=== PATIENT | female | born 1935 | race African-American/Black ===

== ENCOUNTER 2017-04-20 12:34 | Outpatient (CLI) | payer MEDICARE, OTHER ==
[~2017-04-20 12:34] MED LIST: ABUTEROL; ACETAMINOPHEN-1 EAC1 ORAL; ADVAIR 250-501 EACH INH; ALBUTER; ALBUTEROL2.5 MG/3 M HHN; ASPIRIN81 MG PO; AUGMENTIN 875-1 EAC1 ORAL; AZELASTINE137 MCG/0. NS; AZITHROMYCIN250 MG ORAL; AZITHROMYCIN250 MG PO; FLUTICASONE PROP1 GM MISC; LOSARTAN POTAS100 MG PO; MONTELUKAST SOD10 MG ORAL; MUCINEX600 MG PO; NORCO 5-325 TA1 EAC1 ORAL; OMEPRAZOLE20 M2 ORAL; PHENERGAN/CODE120 ML PO; PREDNISOLONE ACE5 ML OP; PREDNISONE20 MG ORAL; PREDNISONE20 MG PO; PROMETH-CODEIN 65 ML PO; PROMETHAZI6.25 MG/1 ORAL; RANITIDINE HCL150 M1 PO; REFRESH OPTIVE15 ML OP; ROBAXIN-750750 MG PO; SYMBICORT2 PUFF1 *; VENTOLIN HFA18 GM INH; ZITHROMAX250 MG ORAL; ZOCOR40 MG PO
--- NOTE | 2017-04-20 15:02 | Diagnostic Imaging Report ---
Indication: COUGH Technique: Two views of the chest Comparison: 04/26/2016 Findings: The lungs and pleural spaces are clear. Heart size is normal. Aorta is tortuous and calcified. There are degenerative changes of thoracic spine. There are cholecystectomy clips. Cervical spine fusion hardware is again demonstrated Impression: No acute process
== END 2017-04-20 14:34 | disposition home or self-care (01) ==
LOC: RAD 12:34
DX: R05 Cough (principal); Z98.1 Arthrodesis status; Z90.49 Acquired absence of other specified parts of digestive tract; J45.909 Unspecified asthma, uncomplicated
CPT/HCPCS: 71020

== ENCOUNTER 2017-06-27 13:35 | Outpatient (CLI) | payer MEDICARE, OTHER ==
--- NOTE | 2017-06-27 16:57 | Diagnostic Imaging Report ---
Indication: Shortness of breath Technique: 2 views of the chest Comparison: 04/20/2017 Findings: Lungs and pleural spaces are clear. The heart size is normal. The aorta is tortuous and ectatic. Right paratracheal prominence is stable from the prior multiple earlier exams, consistent with ectatic vasculature. Cervical spine fusion hardware is again demonstrated. There are degenerative changes of the midthoracic spine. There are cholecystectomy clips again demonstrated. Impression: No acute process. Findings as noted
== END 2017-06-27 15:35 | disposition home or self-care (01) ==
LOC: RAD 13:35
DX: R05 Cough (principal); J44.9 Chronic obstructive pulmonary disease, unspecified; Z98.1 Arthrodesis status; Z90.49 Acquired absence of other specified parts of digestive tract
CPT/HCPCS: 71046

== ENCOUNTER 2019-03-20 14:35 | Inpatient (IN) | payer MEDICARE, OTHER ==
[~2019-03-20] VITALS: Ht 162.6 cm; Wt 72.6 kg
--- NOTE | 2019-03-20 14:50 | NUR ---
ED Nurse Note: PT WALKED IN WITH HER DAUGHTER DUE TO RESPIRATORY DISTRESS AND PRODUCTIVE/PAINFUL COUGHING X 2 WEEKS. DENIES FEVER AT HOME. AAO X4, AMBULATES WITH ASSIST. NOTED ACCESSORY MUSCLES USED WHEN COUGHING. SOB AT REST. WHEEZING NOTED WHEN AUSCULTATED LUNGS.
[2019-03-20 15:00] VITALS: BP 148/77
[2019-03-20] MEDS ORDERED: Ipratropium 0.02% Inh Soln 2.5ml UD HHN ONE (15:00)
--- NOTE | 2019-03-20 15:04 | Emergency Room Report ---
History of Present Illness General Chief Complaint: Dyspnea/Respdistress Source: Patient, Family Member Present Illness HPI Patient presents with wheezing, cough and increasing dyspnea on exertion over the last few days. She has a nebulizer at home and says it is not working anymore. In the past she has been on prednisone. She is not taking this now. Is not her worst attack. Denies fevers or chills. She denies chest pain. She does report that her upper back has some discomfort from the cough. This pain is mainly positional. She rates this pain 8/10. She feels it is more related to osteoarthritis. She denies edema or calf pain. She denies vomiting but sometimes feels the urge when she is coughing up phlegm. There is no hemoptysis. The phlegm is mainly clear but somewhat thick. She is never smoked but says that she has problems with asthma. She states that she has a history of arthritis. She is scheduled to see a gear technician tomorrow. The joints that are sore are mainly in her fingers, hands and knees. No sore throat, palpitations, nausea, diarrhea, dysuria, abdominal pain, rashes , depression, anxiety, visual changes, dizziness, headache. 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 Reviewed Nursing Documentation: PMH: Agreed; PSxH: Agreed Nursing Documentation-PMH Past Medical History: No History, Except For Hx Cardiac Problems: Yes Hx Hypertension: Yes Hx Pacemaker: No Hx Asthma: Yes Hx COPD: No Hx Diabetes: No Hx Cancer: No Hx Gastrointestinal Problems: No Hx Dialysis: No Hx Neurological Problems: No Hx Cerebrovascular Accident: No Hx Seizures: No Review of Systems All Other Systems: negative except mentioned in HPI Physical Exam Vital Signs Date Time Temp Pulse Resp B/P (MAP) Pulse Ox O2 Delivery O2 Flow Rate FiO2 03/20/19 14:40 98.1 100 27 159/85 (109) 98 Room Air Sp02 EP Interpretation: reviewed, normal General Appearance: well appearing, no apparent distress, GCS 15 Head: normocephalic Eyes: bilateral eye normal inspection, bilateral eye PERRL, bilateral eye EOMI ENT: moist mucus membranes Neck: supple Respiratory: no respiratory distress - Breathless with ambulation, wheezing, expiration Cardiovascular #1: regular rate, rhythm, no edema Cardiovascular #2: 2+ radial (R) Gastrointestinal: normal inspection, normal bowel sounds, non tender, no mass, non-distended Genitourinary: no CVA tenderness Musculoskeletal: gait/station normal, normal range of motion, no calf tenderness, tender - Upper back Neurologic: alert, oriented x3, grossly normal Psychiatric: mood/affect normal Skin: no rash, normal inspection, warm/dry Medical Decision Making Diagnostic Impression: Primary Impression: COPD exacerbation ER Course CMP, patient presents with increasing dyspnea wheezing and cough. Differential includes status asthmaticus, COPD exacerbation, bronchitis, acute myocardial infarction, pneumonia amongst others. The patient will be evaluated with EKG, chest x-ray and labs. The patient will be receiving IV hydration, albuterol Atrovent and Solu-Medrol. The patient is placed on a telemetry monitor. EKG without injury. Chest x-ray COPD without infiltrate. Labs with normal white count however she has high percentage of eosinophils. Coags and urinalysis unremarkable. Examined by Dr. Em in the emergency department. There is no evidence of pneumonia at this time. With a normal white count its questionable whether antibiotics are indicated. The fact that the patient has eosinophilia suggest that she will respond to steroids. Return of dyspnea and coughing. Repeat tx. Patient still with wheezing. Patient admitted to medical floor for continued treatment and reevaluation. Laboratory Tests Test 03/20/19 14:58 03/20/19 15:40 03/20/19 16:00 Sodium Level 141 MMOL/L (136-145) Potassium Level 4.2 MMOL/L (3.5-5.1) Chloride Level 106 MMOL/L (98-107) Carbon Dioxide Level 29 MMOL/L (21-32) Anion Gap 6 mmol/L (5-15) Blood Urea Nitrogen 13 mg/dL (7-18) Creatinine 1.0 MG/DL (0.55-1.30) Estimate Glomerular Filtration Rate mL/min (>60) Glucose Level 88 MG/DL (74-106) Calcium Level 9.6 MG/DL (8.5-10.1) Magnesium Level 2.0 MG/DL (1.8-2.4) Total Bilirubin 0.4 MG/DL (0.2-1.0) Aspartate Amino Transferase (AST) 31 U/L (15-37) Alanine Aminotransferase (ALT) 28 U/L (12-78) Alkaline Phosphatase 63 U/L (46-116) Total Creatine Kinase 277 U/L (26-308) Pro-B-Type Natriuretic Peptide 104 pg/mL (0-125) Total Protein 7.4 G/DL (6.4-8.2) Albumin 3.6 G/DL (3.4-5.0) Globulin 3.8 g/dL Albumin/Globulin Ratio 0.9 (1.0-2.7) L White Blood Count 8.7 K/UL (4.8-10.8) Red Blood Count 4.91 M/UL (4.20-5.40) Hemoglobin 13.1 G/DL (12.0-16.0) Hematocrit 40.4 % (37.0-47.0) Mean Corpuscular Volume 82 FL (80-99) Mean Corpuscular Hemoglobin 26.7 PG (27.0-31.0) L Mean Corpuscular Hemoglobin Concent 32.4 G/DL (32.0-36.0) Red Cell Distribution Width 12.2 % (11.6-14.8) Platelet Count 196 K/UL (150-450) Mean Platelet Volume 6.3 FL (6.5-10.1) L Neutrophils (%) (Auto) 45.1 % (45.0-75.0) Lymphocytes (%) (Auto) 26.5 % (20.0-45.0) Monocytes (%) (Auto) 7.9 % (1.0-10.0) Eosinophils (%) (Auto) 19.0 % (0.0-3.0) H Basophils (%) (Auto) 1.6 % (0.0-2.0) Prothrombin Time 10.5 SEC (9.30-11.50) Prothrombin Time INR 1.0 (0.9-1.1) PTT 25 SEC (23-33) Lactic Acid Level 1.20 mmol/L (0.4-2.0) Troponin I 0.012 ng/mL (0.000-0.056) Urine Color Yellow Urine Appearance Clear Urine pH 5 (4.5-8.0) Urine Specific Henry 1.015 (1.005-1.035) Urine Protein Negative (NEGATIVE) Urine Glucose (UA) Negative (NEGATIVE) Urine Ketones Negative (NEGATIVE) Urine Blood Negative (NEGATIVE) Urine Nitrite Negative (NEGATIVE) Urine Bilirubin Negative (NEGATIVE) Urine Urobilinogen 1 MG/DL (0.0-1.0) H Urine Leukocyte Esterase 2+ (NEGATIVE) H Urine RBC 0 /HPF (0 - 2) Urine WBC 2-4 /HPF (0 - 2) Urine Squamous Epithelial Cells Occasional /LPF Urine Bacteria None /HPF (NONE) Microbiology Date/Time Source Procedure Growth Status 03/20/19 15:40 Nasal Nares - Final Complete 03/20/19 15:40 Nasal Nares - Final Complete EKG Diagnostic Results Rate: normal Rhythm: NSR ST Segments: no acute changes Rhythm Strip Diag. Results EP Interpretation: yes Rhythm: NSR, no PVC's, other - PACs Chest X-Ray Diagnostic Results Chest X-Ray Diagnostic Results : Chest X-Ray Ordered: Yes # of Views/Limited/Complete: 1 View Indication: Shortness of Breath EP Interpretation: Yes Interpretation: no consolidation, no effusion, no pneumothorax, other - COPD Impression: Other Electronically Signed by: Electronically signed by Phillip Farrar MD Last Vital Signs Date Time Temp Pulse Resp B/P (MAP) Pulse Ox O2 Delivery O2 Flow Rate FiO2 03/21/19 00:10 Nasal Cannula 2.0 28 03/21/19 00:09 110 20 97 110 20 97 03/20/19 20:00 97.7 139/66 (90) Status: improved Disposition: ADMITTED INPATIENT Condition: Serious Phillip Farrar MD Mar 20, 2019 15:04
[2019-03-20] MEDS ORDERED: Solu-MEDROL 125mg Inj IVP ONE (15:15)
[2019-03-20] MEDS: Albuterol ud Inhalation HHN SCH ×3 (15:16→15:52)
[2019-03-20] MEDS: Sodium Chloride 550 ML IV SCH ×2 (15:24→18:40)
--- NOTE | 2019-03-20 15:29 | NUR ---
ED Nurse Note: RT AT THE BED SIDE FOR BREATHING TREATMENT. BLOOD COLLECTED THEN SENT.
--- NOTE | 2019-03-20 15:29 | NUR ---
ED Nurse Note: FLU SWAB SENT.
--- NOTE | 2019-03-20 15:44 | Diagnostic Imaging Report ---
Indication: Pain, possible foreign body Technique: 3 views of the right knee Comparison: None Findings: No suprapatellar effusion. No acute fractures. No dislocations. There is narrowing of the medial joint compartments. There is a superior pole patellar spur Impression: Mild degenerative changes No acute bony trauma This agrees with the preliminary interpretation provided overnight by [facility] teleradiology service.
[2019-03-20 15:56] LABS: BASOPHILS % (AUTO) 1.6 % (0.0-2.0); HEMATOCRIT 40.4 % (37.0-47.0); HEMOGLOBIN 13.1 G/DL (12.0-16.0); LYMPHOCYTES % (AUTO) 26.5 % (20.0-45.0); MEAN CORPUSCULAR VOLUME 82 FL (80-99); MONOCYTES % (AUTO) 7.9 % (1.0-10.0); NEUTROPHILS % (AUTO) 45.1 % (45.0-75.0); PLATELET COUNT 196 K/UL (150-450); RED BLOOD COUNT 4.91 M/UL (4.20-5.40); RED CELL DISTRIBUTION WIDTH 12.2 % (11.6-14.8); WHITE BLOOD COUNT 8.7 K/UL (4.8-10.8)
[2019-03-20 16:07] LABS: ANION GAP 6 mmol/L (5-15); BLOOD UREA NITROGEN 13 mg/dL (7-18); CALCIUM 9.6 MG/DL (8.5-10.1); CARBON DIOXIDE 29 MMOL/L (21-32); CHLORIDE 106 MMOL/L (98-107); POTASSIUM 4.2 MMOL/L (3.5-5.1); SODIUM 141 MMOL/L (136-145)
[2019-03-20 16:18] LABS: ALANINE AMINOTRANSFERASE 28 U/L (12-78); ALBUMIN 3.6 G/DL (3.4-5.0); ALBUMIN/GLOBULIN RATIO 0.9 (1.0-2.7); ALKALINE PHOSPHATASE 63 U/L (46-116); ASPARTATE AMINO TRANSFERASE 31 U/L (15-37); BILIRUBIN,TOTAL 0.4 MG/DL (0.2-1.0); CREATINE KINASE 277 U/L (26-308)
--- NOTE | 2019-03-20 16:53 | NUR ---
ED Nurse Note: PT STATES ''SHE FEELS BETTER'. SPEAKS MORE AT THIS TIME. DAUGHTER AT THE BED SIDE.
[2019-03-20 17:05] VITALS: BP 141/57
[2019-03-20 17:16] LABS: APPEARANCE,URINE CLEAR; BILIRUBIN, URINE NEGATIVE (NEGATIVE); GLUCOSE, URINE (UA) NEGATIVE (NEGATIVE); KETONES,URINE NEGATIVE (NEGATIVE); LEUKOCYTE ESTERASE ,URINE 2+ (NEGATIVE); NITRITE,URINE NEGATIVE (NEGATIVE); PH,URINE 5 (4.5-8.0); PROTEIN,URINE NEGATIVE (NEGATIVE); UROBILINOGEN,URINE 1 MG/DL (0.0-1.0)
[2019-03-20 17:19] LABS: COLOR,URINE YELLOW
[2019-03-20] MEDS ORDERED: Albuterol ud Inhalation HHN ONE (17:30)
[2019-03-20] MEDS ORDERED: guaiFENesin w/Codeine 5ml Liq ud ORAL PRN (17:30)
--- NOTE | 2019-03-20 17:30 | NUR ---
ED Nurse Note: NOTED PT COUGHING OUT WHITE PHLEGM AFTER FIRST BREATHING TREATMENT.
--- NOTE | 2019-03-20 17:31 | NUR ---
ED Nurse Note: RT CALLED FOR ANOTHER BREATHING TREATMENT.
--- NOTE | 2019-03-20 18:15 | NUR ---
ED Nurse Note: Patient does not recall all her medications at this time.
[2019-03-20] MEDS ORDERED: AMOXICILLIN500 MG ORAL (18:27)
--- NOTE | 2019-03-20 18:28 | NUR ---
ED Nurse Note: PT TRANSPORTED TO TELEMETRY UNIT VIA GURNEY WITH ALL BELONGINGS SENT WITH RN AND LOCK TECHNICIAN. PT STABLE.
[2019-03-20] MEDS ORDERED: Milk of Magnesia 30ml Ud ORAL PRN (18:30)
--- NOTE | 2019-03-20 18:36 | NUR ---
NURSE NOTES: Report from PIETRO Long in ED at 1810. Pt brought to 2E 214-1 via gurney. Pt is awake, talkative, productive cough, RT called for breathing treatment, pt changed into yellow gown, yellow socks and tele monitor applied and working, Dr. Em has been contacted for orders already. Bed in lowest position, call light within reach
[2019-03-20] MEDS: Albuterol/Ipratropium 3ml neb HHN PRN (19:44)
--- NOTE | 2019-03-20 19:57 | NUR ---
HAND-OFF: Report given to PIETRO Conklin. Endorse to do Med Recon review, clarify orders with Dr. Em, obtain sputum from pt to send to lab.
--- NOTE | 2019-03-20 19:59 | NUR ---
NURSE NOTES: Received pt from PIETRO Mariano. Pt awake, alert, and talkative. Bed in lowest position. Call light within reach. Will continue to monitor.
[2019-03-20 20:00] VITALS: BP 139/66
[2019-03-20] MEDS: Doxycycline Monohydrate 100mg ORAL SCH (21:24)
[2019-03-20] MEDS: Zolpidem 5mg tab ORAL PRN (21:24)
[2019-03-20] MEDS: Solu-MEDROL 40mg Inj IVP SCH (21:24)
--- NOTE | 2019-03-20 23:11 | NUR ---
NURSE NOTES: Called and spoke with Dr. Em regarding clarification on rocephin order and pain med. He gave the following orders: - Rocephin 1gm q12 - Nothing for pain Will input orders and will continue to monitor.
[2019-03-21] VITALS (7 sets, daily range): BP systolic 116–156; BP diastolic 51–80
[2019-03-21] MEDS: Albuterol/Ipratropium 3ml neb HHN PRN ×3 (00:08→10:28)
[2019-03-21] MEDS: cefTRIAXone 1 GM in D5W 55 ML IVPB SCH ×3 (01:38→23:39)
[2019-03-21] MEDS: guaiFENesin w/Codeine 5ml Liq ud ORAL PRN ×2 (01:50→10:52)
--- NOTE | 2019-03-21 03:15 | Consultation ---
DATE OF CONSULTATION: 03/20/2019 CARDIOLOGY CONSULTATION CONSULTING PHYSICIAN: Phillip Martinez M.D. REQUESTING PHYSICIAN: Federico Em M.D. REASON: Shortness of breath and chest pain in the setting of known coronary artery disease. HISTORY OF PRESENT ILLNESS: This is an 83-year-old female with a history of coronary artery disease, stable angina class 1, and a distant history of coronary stent procedure. She has been on anti-platelet therapy for a number of years and has not had any exertional chest pain for some time. She has had two weeks of progressive cough and congestion with greenish sputum production that developed and progressed following her influenza vaccination several weeks ago. I have been asked to assist with cardiovascular care. PAST MEDICAL HISTORY: Coronary artery disease, hypertension, asthmatic bronchitis, paroxysmal bronchospasm, hyperlipidemia, degenerative disk disease, lumbosacral radiculopathy, osteoarthritis. ALLERGIES: Include hydrocodone, ibuprofen, acetaminophen. SOCIAL HISTORY: Negative for smoking, alcohol, or substance abuse. FAMILY HISTORY: Noncontributory. MEDICATIONS: Prior to admission, reviewed and reconciled. REVIEW OF SYSTEMS: She had a recent echocardiogram revealed normal ejection fraction, mild concentric hypertrophy, and a diastolic relaxation abnormality with no pulmonary hypertension and minimal degenerative valve disease. She has not had any signs of flow-limiting coronary disease. There is no history of sustained cardiac arrhythmias. There is no history of thyroid disorder or diabetes. She is on anti-lipid drugs. Her mobility is impaired due to arthritic and degenerative disk disease. She uses a walker or cane. PHYSICAL EXAMINATION: VITAL SIGNS: Afebrile, blood pressure 145/60, pulse 92, and respirations 18. NECK: Supple. LUNGS: With coarse breath sounds and rhonchi. No sinus tenderness. CARDIAC: Regular rhythm and rate. Normal S1, S2 with a fourth heart sound. ABDOMEN: Soft, nontender. EXTREMITIES: No edema. LABORATORY AND DIAGNOSTIC DATA: White count 8.7, hemoglobin 13.1. Potassium 4.2, BUN 13, creatinine 1. Lactic acid normal. Troponin 0.012. Natriuretic peptide 104. Chest x-ray is pending for review. IMPRESSION: 1. Community-acquired pneumonia. 2. Asthmatic bronchitis with acute exacerbation and paroxysmal bronchospasm. 3. Coronary artery disease with stable angina. 4. Hypertensive heart disease with controlled blood pressure. 5. Diastolic dysfunction with no signs of acute congestive heart failure. 6. Mobility limitation due to degenerative disk disease. PLAN: 1. Inhaled bronchodilators. 2. Intravenous steroids. 3. Antimicrobials. 4. Follow up culture results. 5. Consider CAT scan of the sinuses. 6. Maintain anti-platelet and anti-lipid therapy. 7. DVT prophylaxis. Phillip Martinez M.D. DR: GAYATRI JOB#: [id number] CC:
--- NOTE | 2019-03-21 03:32 | Consultation ---
DATE OF CONSULTATION: 03/20/2019 INCOMPLETE DICTATION CARDIOLOGY CONSULTATION CONSULTING PHYSICIAN: Phillip Martinez M.D. REQUESTING PHYSICIAN: Federico Em M.D. REASON: Shortness of breath and chest pain in the setting of known coronary artery disease. HISTORY: . Phillip Martinez M.D. DR: GAYATRI JOB#: [id number] CC:
[2019-03-21 04:43] LABS: BASOPHILS % (AUTO) 0.1 % (0.0-2.0); HEMATOCRIT 35.9 % (37.0-47.0); HEMOGLOBIN 11.6 G/DL (12.0-16.0); LYMPHOCYTES % (AUTO) 14.9 % (20.0-45.0); MEAN CORPUSCULAR VOLUME 83 FL (80-99); MONOCYTES % (AUTO) 2.3 % (1.0-10.0); NEUTROPHILS % (AUTO) 82.8 % (45.0-75.0); PLATELET COUNT 170 K/UL (150-450); RED BLOOD COUNT 4.33 M/UL (4.20-5.40); RED CELL DISTRIBUTION WIDTH 13.1 % (11.6-14.8); WHITE BLOOD COUNT 7.8 K/UL (4.8-10.8)
[2019-03-21 04:48] LABS: ANION GAP 9 mmol/L (5-15); BLOOD UREA NITROGEN 15 mg/dL (7-18); CALCIUM 9.1 MG/DL (8.5-10.1); CARBON DIOXIDE 24 MMOL/L (21-32); CHLORIDE 105 MMOL/L (98-107); CREATININE 1.1 MG/DL (0.55-1.30); POTASSIUM 4.2 MMOL/L (3.5-5.1); SODIUM 138 MMOL/L (136-145)
[2019-03-21 05:01] LABS: CHOLESTEROL 100 MG/DL (< 200); HDL CHOLESTEROL 48 MG/DL (40-60); TRIGLYCERIDES < 15 MG/DL (30-150)
--- NOTE | 2019-03-21 07:15 | NUR ---
NURSE NOTES: Report received from Katerin Petersen RN.Pt awake sitting up on bed eating breakfast ,in no resp distress,with on and off dry hacking cough no signs of pain,SR on the monitor,skin warm and dry,IV site to RAC intact,pt voids per bedside commode,SR up x2 HOB elevated,call king within reach at bedside,bed lock in olest position,will continue with plans of care.
--- NOTE | 2019-03-21 07:30 | History and Physical Report ---
DATE OF ADMISSION: 03/20/2019 HISTORY OF PRESENT ILLNESS: The patient is a very pleasant 83-year-old female with a history of asthma, history of hypertension, history of chronic back pain, who presented to the emergency room with complaints of increased wheezing occurring over the past week associated with cough productive of yellow sputum. She denies any fevers or chills. Denies any chest pain. No abdominal pain. No urinary symptoms. She has been taking her medications, however, has increased wheezing and presented to the ER. PAST MEDICAL HISTORY: Includes history of hypertension, history of asthma, history of seasonal allergies, history of sinus problem, history of chronic back pain. ALLERGIES: She is allergic to acetaminophen, hydrocodone, ibuprofen. MEDICATIONS: Please see her reconciled med list. SOCIAL HISTORY: She does not smoke, does not drink any alcohol, does not use any drugs. PHYSICAL EXAMINATION: GENERAL: She is well developed, well nourished, currently in no apparent distress. VITAL SIGNS: Temperature 98.1, pulse of 100, respirations 27, blood pressure 159/85, pulse oximetry 98% on room air. HEENT: Head is normocephalic, atraumatic. Pupils are equal, reactive to light. Extraocular muscles are intact. Eyes are anicteric. NECK: Supple. No JVP. No bruits. LUNGS: She does have bilateral wheezes. HEART: Tachy. S1 and S2. ABDOMEN: Soft. Positive bowel sounds. EXTREMITIES: No clubbing, cyanosis, or edema. NEUROLOGIC: She is alert, oriented, nonfocal. LABORATORY AND DIAGNOSTIC DATA: White count 8.7, hemoglobin 13.1, hematocrit 40.4, platelet count of 196,000. Sodium 141, potassium 4.2, BUN of 13, creatinine 1.0, glucose of 88. Lactic acid 1.20. Troponin 0.012. ProBNP 104. Total CPK 277. Urinalysis, 2+ leukocyte esterase, 2 to 4 wbc's, 0 rbc's. INR 1.0, PTT 25. EKG noted. Chest x-ray, preliminary negative. ASSESSMENT AND PLAN: The patient is a very pleasant 83-year-old female with a history of hypertension, history of asthma, history of chronic back pain, who presents with increased wheezing, congestion, cough, being admitted for asthma exacerbation. The patient will be given steroids, , obtain sputums. I will ask Dr. Sam, her poising inspector to see her. We will also check lower extremity Dopplers on her. I will also ask Dr. Martinez, her air box tester to see her as well. The patient should be on DVT and ulcer prophylaxes. Federico Em M.D. DR: TRISTIN JOB#: [id number] CC:
[2019-03-21] MEDS: Doxycycline Monohydrate 100mg ORAL SCH ×2 (09:18→20:46)
[2019-03-21] MEDS: Solu-MEDROL 40mg Inj IVP SCH ×3 (09:18→17:51)
--- NOTE | 2019-03-21 10:55 | NUR ---
NURSE NOTES: Pt with bouts of dry cough making pt c/o pain to chest and sternum,Robittusin with Codein 1 tsp given ,will continue to monitor pt.
--- NOTE | 2019-03-21 11:54 | Consultation ---
Consult Note Assessment/Plan DICT # [id number] Nishant Sam MD Mar 21, 2019 11:54
[2019-03-21] MEDS: Albuterol/Ipratropium 3ml neb HHN SCH ×2 (14:34→20:11)
[2019-03-21] MEDS: Montelukast 10mg tablet ORAL SCH (16:59)
--- NOTE | 2019-03-21 17:15 | NUR ---
NURSE NOTES: Pt stable at this time,no further c/o coughing and discomfort presented.
[2019-03-21] MEDS: guaiFENesin ER 600mg tab ORAL SCH (17:50)
[2019-03-21] MEDS: Flonase Nasal Inhaler 16gm NASAL SCH (17:50)
--- NOTE | 2019-03-21 19:40 | NUR ---
HAND-OFF: Report given to Katerin Cantu RN..
--- NOTE | 2019-03-21 20:05 | NUR ---
NURSE NOTES: Received pt from PIETRO Soto. Pt awake, alert, and talkative. Bed in lowest position. Call light within reach. Will continue to monitor.
[2019-03-21] MEDS: Promethazine/Codeine 5ml UD ORAL PRN (20:46)
[2019-03-21] MEDS: Heparin 5000 units/ml inj SUBQ SCH (20:47)
[2019-03-21] MEDS: Zolpidem 5mg tab ORAL PRN (20:52)
--- NOTE | 2019-03-21 21:58 | General Progress Note ---
Assessment/Plan Assessment/Plan: asthma bronchitis chronic back pain htn pulmonayr hygiene abx steroids bp controlled dvt and ulcer rpohylaxis Subjective Allergies: Coded Allergies: ACETAMINOPHEN (Verified Allergy, Severe, 02/17/13) HYDROCODONE (Verified Allergy, Severe, 02/17/13) IBUPROFEN (Verified Allergy, Severe, 02/17/13) Subjective pos wheezing and coughing no cp Objective Last 24 Hour Vital Signs Date Time Temp Pulse Resp B/P (MAP) Pulse Ox O2 Delivery O2 Flow Rate FiO2 03/21/19 20:00 Nasal Cannula 2.0 28 03/21/19 20:00 98.5 91 18 127/56 (79) 95 03/21/19 20:00 85 03/21/19 20:00 78 18 100 Room Air 78 20 99 03/21/19 16:00 98.2 96 19 116/80 (92) 96 03/21/19 16:00 98 03/21/19 14:34 79 18 99 Room Air 86 20 99 03/21/19 12:00 97.0 90 19 138/52 (80) 96 03/21/19 12:00 60 03/21/19 10:28 79 18 99 Room Air 77 20 97 03/21/19 09:00 Nasal Cannula 2.0 03/21/19 08:38 Nasal Cannula 2.0 28 03/21/19 08:36 87 20 99 Room Air 78 22 98 03/21/19 08:00 98.2 93 19 156/61 (92) 95 03/21/19 08:00 60 03/21/19 04:00 99.3 90 21 133/54 (80) 95 03/21/19 04:00 84 03/21/19 00:10 Nasal Cannula 2.0 28 03/21/19 00:09 110 20 97 Room Air 110 20 97 03/21/19 00:00 91 03/21/19 00:00 98.1 94 20 131/55 (80) 98 Intake and Output 03/20/19 03/21/19 19:00 07:00 Intake Total 450 ml Balance 450 ml IV Total 450 ml # Voids 1 1 Laboratory Tests 03/21/19 04:00: White Blood Count 7.8, Red Blood Count 4.33, Hemoglobin 11.6L, Hematocrit 35.9L , Mean Corpuscular Volume 83, Mean Corpuscular Hemoglobin 26.8L, Mean Corpuscular Hemoglobin Concent 32.3, Red Cell Distribution Width 13.1, Platelet Count 170, Mean Platelet Volume 5.8L, Neutrophils (%) (Auto) 82.8H, Lymphocytes (%) (Auto) 14.9L, Monocytes (%) (Auto) 2.3, Eosinophils (%) (Auto) 0.0, Basophils (%) (Auto) 0.1, Sodium Level 138, Potassium Level 4.2, Chloride Level 105, Carbon Dioxide Level 24, Anion Gap 9, Blood Urea Nitrogen 15, Creatinine 1.1, Estimat Glomerular Filtration Rate , Glucose Level 185H, Hemoglobin A1c 5.8 , Calcium Level 9.1, Triglycerides Level < 15L, Cholesterol Level 100, LDL Cholesterol 48, HDL Cholesterol 48, Cholesterol/HDL Ratio 2.1L, Thyroid Stimulating Hormone (TSH) 0.675 Height (Feet): 5 Height (Inches): 4.00 Weight (Pounds): 160 General Appearance: WD/WN Neck: supple Cardiovascular: normal rate Respiratory/Chest: expiratory wheezing Abdomen: soft Edema: no edema noted Arm (L), no edema noted Arm (R), no edema noted Leg (L), no edema noted Leg (R), no edema noted Pedal (L), no edema noted Pedal (R), no edema noted Generalized Federico Em MD Mar 21, 2019 21:58
--- NOTE | 2019-03-21 22:16 | Consultation ---
DATE OF CONSULTATION: 03/21/2019 PULMONARY CONSULTATION CONSULTING PHYSICIAN: Nishant Sam M.D. REFERRING PHYSICIAN: Federico Em M.D. REASON FOR CONSULTATION: Asthma exacerbation. HISTORY OF PRESENT ILLNESS: The patient is a very pleasant 83-year-old female with a history of chronic cough, thought to be secondary to asthma, upper airway cough syndrome, chronic rhinosinusitis, status post prior endoscopic sinus surgery, bronchiectasis, GERD, CAD, DJD, chronic low back pain, and history of prior DVT, PE in 2000, which was provoked who presented with several days of cough, congestion, shortness of breath, and wheezing. She has been afebrile with a T-max of 99.3 and saturating well on room air to 2 L. She has no leukocytosis and her labs are otherwise unremarkable. Rapid flu in the ER was negative and chest x-ray showed mild degenerative changes, but no other findings. The patient was last seen by me in April and was supposed to follow up in three months, but has not followed up since. PAST MEDICAL HISTORY: 1. CAD, status post PCI. 2. Hypertension. 3. Hyperlipidemia. 4. DJD. 5. DDD and chronic low back pain. 6. Bronchiectasis. 7. Asthma. 8. Chronic rhinosinusitis. 9. History of endoscopic sinus surgery x2. 10. Chronic cough. 11. History of prior DVT, PE in 2000 after cervical spine surgery. ALLERGIES: Acetaminophen, hydrocodone, ibuprofen. MEDICATIONS: Prior to admission medications reviewed. SOCIAL HISTORY: No known history of tobacco, alcohol, or drug use. FAMILY HISTORY: Noncontributory. REVIEW OF SYSTEMS: Negative other than the history of present illness. PHYSICAL EXAMINATION: VITAL SIGNS: Temperature 98.2, pulse 93, blood pressure 152/61, respiratory rate 16, saturating 98% on room air. GENERAL: She is a well-developed and well-nourished female, elderly, in no acute distress. Awake, alert, and oriented x3. HEENT: Normocephalic and atraumatic. Oropharynx is clear with moist mucous membranes. NECK: Supple without lymphadenopathy or JVD. CHEST: Scattered coarse breath sounds and expiratory wheezing. HEART: Regular rate and rhythm. ABDOMEN: Soft, nontender, and nondistended. EXTREMITIES: No cyanosis, clubbing or edema. ANCILLARY DATA: Labs reviewed. Chest x-ray unremarkable. Last PFTs from 05/11/2018, FEV1/FVC ratio of 68%, FEV1 1.13 or 86% predicted, FVC 1.66 or 86% predicted, TLC 3.56 or 87% predicted, vital capacity 1.77, 92% predicted, DLCO 11.6 or 65% predicted, vital capacity 3.83, 80% predicted. Last CT of chest on 05/11/2018, no change, mild bronchiectasis and air trapping disease and stable nodules. Last IgE was 159 in 2017 and allergen panel at that time was negative. ASSESSMENT: The patient is an 83-year-old female, nonsmoker with history of chronic cough, asthma, upper airway cough syndrome, postnasal drip, GERD, chronic rhinosinusitis, prior endoscopic sinus surgery, bronchiectasis, CAD status post PCI, hypertension, hyperlipidemia, degenerative disk disease, chronic low back pain, and prior DVT, PE, presenting with an acute exacerbation of her asthma, likely precipitated by URI/bronchitis. PROBLEM LIST: 1. Asthma with acute exacerbation. 2. Likely antecedent URI/bronchitis. 3. Bronchiectasis. 4. Upper airway cough syndrome/postnasal drip. 5. GERD. 6. History of chronic rhinosinusitis and endoscopic sinus surgery x2. 7. CAD, status post PCI, hypertension, hyperlipidemia. 8. DJD/DDD with chronic low back pain. 9. Remote history of postop DVT/PE in 2000 after cervical spine surgery. TREATMENT PLAN: 1. Optimize pulmonary hygiene/mobilize as tolerated. 2. Continue doxycycline and Rocephin (today is day #2). 3. Titrate FiO2 to keep saturations greater than 90%. 4. Fnfmb-gfn-ickjt and p.r.n. DuoNebs. 5. Solu-Medrol 60 IV t.i.d. and taper. 6. Monitor peak expiratory flow rates. 7. Monitor blood sugars on steroids. 8. Mucinex and p.r.n. Robitussin with codeine. 9. Resume Flonase. 10. We will order . Zantac is not on formulary, we will start Protonix. 11. Follow up duplex of the lower extremities. 12. Monitor volumes and renal function. 13. Aspiration precautions. 14. DVT prophylaxis, heparin subcutaneous. 15. The patient is a Full Code. Dr. mE, thank you for allowing me to assist in the care of your patient. If I may be of any assistance in the future, please do not hesitate to ask. Nishant Sam M.D. DR: GEREMIAS JOB#: [id number] CC:
[2019-03-22] MEDS: Albuterol/Ipratropium 3ml neb HHN SCH ×4 (01:15→13:21)
--- NOTE | 2019-03-22 01:30 | Progress Note ---
DATE: 03/21/2019 CARDIOLOGY PROGRESS NOTE SUBJECTIVE: The patient with cough and congestion. Less sputum production. Shortness of breath today. However, chest pain only with cough. OBJECTIVE: VITAL SIGNS: Blood pressure 138/52, pulse 60, and respirations 19. Afebrile. LUNGS: Coarse breath sounds, rhonchi, and hoarseness. HEART: Regular rhythm and rate. Normal S1, S2 with a fourth heart sound. ABDOMEN: Soft. EXTREMITIES: No edema. LABORATORY DATA: Sputum culture pending. LABORATORY DATA: White count 7.8 and hemoglobin 11.6. Potassium 4.2, BUN 15, and creatinine 1.1. LDL is 48. IMPRESSION: 1. Chronic obstructive pulmonary disease exacerbation. 2. Acute bronchitis. 3. Paroxysmal bronchospasm. 4. Stable angina. 5. Coronary artery disease. 6. History of coronary stent. 7. Very low cholesterol parameters. PLAN: 1. Restart anti-platelet therapy. 2. Hold statin for now. 3. Steroid taper. 4. Bronchodilators. 5. Respiratory hygiene. 6. Empiric antibiotics. 7. DVT prophylaxis. 8. Await final sputum cultures. Phillip Martinez M.D. DR: HUNTER JOB#: [id number] CC:
[2019-03-22 04:00] VITALS: BP 124/57
[2019-03-22 07:14] LABS: BASOPHILS % (AUTO) 0.2 % (0.0-2.0); HEMATOCRIT 35.1 % (37.0-47.0); HEMOGLOBIN 11.5 G/DL (12.0-16.0); LYMPHOCYTES % (AUTO) 9.5 % (20.0-45.0); MEAN CORPUSCULAR VOLUME 82 FL (80-99); MONOCYTES % (AUTO) 5.9 % (1.0-10.0); NEUTROPHILS % (AUTO) 84.3 % (45.0-75.0); PLATELET COUNT 185 K/UL (150-450); RED BLOOD COUNT 4.29 M/UL (4.20-5.40); RED CELL DISTRIBUTION WIDTH 13.2 % (11.6-14.8); WHITE BLOOD COUNT 15.4 K/UL (4.8-10.8)
--- NOTE | 2019-03-22 07:25 | NUR ---
NURSE NOTES: Report received from PIETRO Conklin. Pt. getting breathing TX. R AC 20g IV flushed, SL. Pt. AOx4. Bed on lowest position, side rails upx2, brakes engaged. Call light within easy reach. Pt's cane at the bedside. Fall precaution teaching done. Reminder given to Pt. to use the call light before trying to get out of the bed. Confirmed understanding.
[2019-03-22 07:27] LABS: ANION GAP 8 mmol/L (5-15); BLOOD UREA NITROGEN 18 mg/dL (7-18); CARBON DIOXIDE 27 MMOL/L (21-32); CHLORIDE 107 MMOL/L (98-107); CREATININE 1.1 MG/DL (0.55-1.30); POTASSIUM 4.5 MMOL/L (3.5-5.1); SODIUM 142 MMOL/L (136-145)
--- NOTE | 2019-03-22 07:48 | NUR ---
HAND-OFF: Report given to PIETRO Steinre. Pt stable.
[2019-03-22] MEDS: Albuterol/Ipratropium 3ml neb HHN PRN ×2 (07:50→16:19)
[2019-03-22 08:00] VITALS: BP 135/61
[2019-03-22] MEDS: Doxycycline Monohydrate 100mg ORAL SCH ×2 (08:45→21:34)
[2019-03-22] MEDS: guaiFENesin ER 600mg tab ORAL SCH ×2 (08:45→18:21)
[2019-03-22] MEDS: Solu-MEDROL 40mg Inj IVP SCH ×3 (08:46→18:22)
[2019-03-22] MEDS: Flonase Nasal Inhaler 16gm NASAL SCH ×2 (08:48→18:21)
[2019-03-22] MEDS ORDERED: Aspirin Baby 81mg ORAL SCH (09:00)
[2019-03-22] MEDS: Heparin 5000 units/ml inj SUBQ SCH ×2 (09:00→21:40)
--- NOTE | 2019-03-22 09:00 | NUR ---
PT EVALUATION NOTE Patient seen for initial evaluation, see complete evaluation for details. Patient presents with generalized weakness and decreased endurance which affects patient's ability to complete mobility tasks safely. Patient requires CGA for transfers and ambulation with FWW. Ambulation endurance limited by c/o SOB and general fatigue and weakness. Patient ambulated with O2 via NC @ 2 l/min. Patient will benefit from skilled inpatient PT intervention to address strength, balance, endurance and safety for improved level of functional mobility. Recommend discharge to SNF for further rehab vs home w/home PT and family assistance once medically cleared by MD. Patient appears to have necessary DME at home. Addendum: 03/22/19 at 1222 by YESSY GRIMM PT Amended: Links added.
[2019-03-22 12:00] VITALS: BP 133/63
[2019-03-22] MEDS: guaiFENesin w/Codeine 5ml Liq ud ORAL PRN (13:42)
[2019-03-22] MEDS: cefTRIAXone 1 GM in D5W 55 ML IVPB SCH ×2 (13:43→23:24)
--- NOTE | 2019-03-22 14:25 | Diagnostic Imaging Report ---
APPROVED REPORT CPT Code: 14547 Present Symptoms Comments: BILATERAL LEGS PAIN. BILATERAL: Imaging reveals a patent deep venous system bilaterally. There is no evidence of thrombus within the femoral, popliteal or tibial segments. The greater saphenous veins are also within normal limits. Doppler indicates normal spontaneous flow within these segments.
--- NOTE | 2019-03-22 14:36 | Pulmonology Progress Note ---
Assessment/Plan Problems: (1) Acute bronchitis (2) COPD exacerbation (3) Upper respiratory infection (4) Sinusitis Assessment/Plan ASSESSMENT: The patient is an 83-year-old female, nonsmoker with history of chronic cough, asthma, upper airway cough syndrome, postnasal drip, GERD, chronic rhinosinusitis, prior endoscopic sinus surgery, bronchiectasis, CAD status post PCI, hypertension, hyperlipidemia, degenerative disk disease, chronic low back pain, and prior DVT, PE, presenting with an acute exacerbation of her asthma, likely precipitated by URI/bronchitis. PROBLEM LIST: 1. Asthma with acute exacerbation. 2. Likely antecedent URI/bronchitis. 3. Bronchiectasis. 4. Upper airway cough syndrome/postnasal drip. 5. GERD. 6. History of chronic rhinosinusitis and endoscopic sinus surgery x2. 7. CAD, status post PCI, hypertension, hyperlipidemia. 8. DJD/DDD with chronic low back pain. 9. Remote history of postop DVT/PE in 2000 after cervical spine surgery. 10. Leukocytosis, likely steroid effect TREATMENT PLAN: 1. Optimize pulmonary hygiene/mobilize as tolerated. 2. Continue doxycycline and Rocephin (D3). 3. Titrate FiO2 to keep saturations greater than 90%. 4. Itnly-sxu-vodeo and p.r.n. DuoNebs. 5. Solu-Medrol 60 IV t.i.d. and taper. 6. Monitor peak expiratory flow rates. 7. Monitor blood sugars and WCt on steroids. 8. Mucinex and p.r.n. Robitussin with codeine. 9. Continue Flonase 10. Continue PPI 11. Monitor volumes and renal function. 13. Aspiration precautions. 14. DVT prophylaxis, heparin subcutaneous. 15. The patient is a Full Code. Subjective Allergies: Coded Allergies: ACETAMINOPHEN (Verified Allergy, Severe, 02/17/13) HYDROCODONE (Verified Allergy, Severe, 02/17/13) IBUPROFEN (Verified Allergy, Severe, 02/17/13) Subjective AFVSS on 2L WCt 15 still wheezing no FC no CP + SOB Objective Last 24 Hour Vital Signs Date Time Temp Pulse Resp B/P (MAP) Pulse Ox O2 Delivery O2 Flow Rate FiO2 03/22/19 13:22 86 18 100 Nasal Cannula 2.0 28 88 20 99 03/22/19 13:10 86 18 100 Room Air 88 18 98 03/22/19 09:00 Nasal Cannula 2.0 03/22/19 08:00 98.1 90 18 135/61 (85) 99 03/22/19 08:00 98 03/22/19 07:51 98 20 100 Nasal Cannula 2.0 28 76 20 97 03/22/19 07:32 Nasal Cannula 2.0 28 03/22/19 07:32 98 18 100 Room Air 97 18 93 03/22/19 04:00 82 03/22/19 04:00 99.0 87 18 124/57 (79) 87 03/22/19 01:15 81 20 100 Room Air 84 20 99 03/22/19 00:00 78 03/21/19 23:48 98.4 88 18 116/51 (72) 95 03/21/19 21:00 Nasal Cannula 2.0 03/21/19 20:00 Nasal Cannula 2.0 28 03/21/19 20:00 98.5 91 18 127/56 (79) 95 03/21/19 20:00 85 03/21/19 20:00 78 18 100 Room Air 78 20 99 03/21/19 16:00 98.2 96 19 116/80 (92) 96 03/21/19 16:00 98 Intake and Output 03/21/19 03/22/19 18:59 06:59 Intake Total 900 ml Balance 900 ml Intake Oral 900 ml # Voids 2 2 General Appearance: WD/WN, no acute distress HEENT: normocephalic, atraumatic, anicteric, mucous membranes moist Respiratory/Chest: expiratory wheezing, inspiratory wheezing Cardiovascular: normal peripheral pulses, normal rate, regular rhythm Abdomen: normal bowel sounds, soft, non tender, no organomegaly, non distended , no mass Extremities: no cyanosis, no clubbing, no edema Microbiology Date/Time Source Procedure Growth Status 03/20/19 15:40 Blood Blood Culture - Preliminary NO GROWTH AFTER 24 HOURS Resulted 03/20/19 15:25 Blood Blood Culture - Preliminary NO GROWTH AFTER 24 HOURS Resulted 03/20/19 23:25 Sputum Gram Stain - Final Resulted 03/20/19 23:25 Sputum Sputum Culture - Preliminary NORMAL UPPER RESPIRATORY WILFRID PRESENT Resulted 03/20/19 15:40 Nasal Nares - Final Complete 03/20/19 15:40 Nasal Nares - Final Complete Laboratory Tests 03/22/19 06:26: White Blood Count 15.4#H, Red Blood Count 4.29, Hemoglobin 11.5L, Hematocrit 35.1L, Mean Corpuscular Volume 82, Mean Corpuscular Hemoglobin 26.8L, Mean Corpuscular Hemoglobin Concent 32.7, Red Cell Distribution Width 13.2, Platelet Count 185, Mean Platelet Volume 5.4L, Neutrophils (%) (Auto) 84.3H, Lymphocytes (%) (Auto) 9.5L, Monocytes (%) (Auto) 5.9, Eosinophils (%) (Auto) 0.0, Basophils (%) (Auto) 0.2, Sodium Level 142, Potassium Level 4.5, Chloride Level 107, Carbon Dioxide Level 27, Anion Gap 8, Blood Urea Nitrogen 18, Creatinine 1.1, Estimat Glomerular Filtration Rate , Glucose Level 122H, Calcium Level 9.0 Current Medications Medications (Trade) Dose Ordered Sig/Alfonso Route PRN Reason Start Time Stop Time Status Last Admin Dose Admin Al Hydroxide/Mg Hydroxide (Mylanta) 30 ml BIDPRN PRN ORAL Constipation 03/20/19 18:30 04/19/19 18:29 Albuterol/ Ipratropium (Albuterol/ Ipratropium) 3 ml Q4H PRN HHN Shortness of Breath 03/20/19 18:30 03/25/19 18:29 03/22/19 07:50 Albuterol/ Ipratropium (Albuterol/ Ipratropium) 3 ml Q6HRT HHN 03/21/19 13:00 03/26/19 12:59 03/22/19 13:21 Aspirin (ASA) 81 mg DAILY ORAL 03/22/19 09:00 04/21/19 08:59 03/22/19 08:44 Ceftriaxone Sodium 1 gm/ Dextrose 55 ml @ 110 mls/hr Q12HR@0000,1200 IVPB 03/21/19 00:00 03/28/19 00:00 03/22/19 13:43 Doxycycline Monohydrate (Doxycycline Monohydrate) 100 mg Q12HR ORAL 03/20/19 21:00 03/27/19 20:59 03/22/19 08:45 Fluticasone Propionate (Flonase) 1 spray TWICE A DAY NASAL 03/21/19 18:00 04/20/19 17:59 03/22/19 08:48 Guaifenesin (Mucinex ER) 600 mg TWICE A DAY ORAL 03/21/19 18:00 04/20/19 17:59 03/22/19 08:45 Guaifenesin/ Codeine Phosphate (Robitussin with codeine) 5 ml Q6H PRN ORAL For Cough 03/21/19 01:45 04/20/19 01:44 03/22/19 13:42 Heparin Sodium (Porcine) (Heparin 5000 units/ml) 5,000 units EVERY 12 HOURS SUBQ 03/21/19 21:00 04/20/19 20:59 03/21/19 20:47 Magnesium Hydroxide (Mom) 30 ml BIDPRN PRN ORAL Constipation 03/20/19 18:30 04/19/19 18:29 Methylprednisolone Sodium Succinate (Solu-MEDROL) 60 mg TID IVP 03/21/19 13:00 04/19/19 20:59 03/22/19 13:12 Montelukast Sodium (Singulair) 10 mg QPM ORAL 03/21/19 16:30 04/20/19 16:29 03/21/19 16:59 Pantoprazole (Protonix) 40 mg DAILY ORAL 03/22/19 09:00 04/21/19 08:59 03/22/19 08:45 Promethazine HCl/ Codeine (Phenergan with Codeine) 5 ml Q6H PRN ORAL For Cough 03/21/19 12:30 04/20/19 12:29 03/21/19 20:46 Zolpidem Tartrate (Ambien) 5 mg HSPRN PRN ORAL Insomnia 03/20/19 19:15 03/27/19 19:14 03/21/19 20:52 Nishant Sam MD Mar 22, 2019 14:36
[2019-03-22 16:00] VITALS: BP 143/74
[2019-03-22] MEDS: Montelukast 10mg tablet ORAL SCH (17:16)
[2019-03-22 20:00] VITALS: BP 145/75
--- NOTE | 2019-03-22 20:00 | NUR ---
HAND-OFF: Report given to PIETRO smith. Pt in stable condition. Plan of care endorsed.
[2019-03-22] MEDS: Promethazine/Codeine 5ml UD ORAL PRN (21:34)
[2019-03-22] MEDS: Zolpidem 5mg tab ORAL PRN (21:35)
--- NOTE | 2019-03-22 22:18 | General Progress Note ---
Assessment/Plan Assessment/Plan: asthma bronchitis chronic back pain htn pulmonary hygiene abx steroids bp controlled dvt and ulcer prohylaxis oob PT Subjective Allergies: Coded Allergies: ACETAMINOPHEN (Verified Allergy, Severe, 02/17/13) HYDROCODONE (Verified Allergy, Severe, 02/17/13) IBUPROFEN (Verified Allergy, Severe, 02/17/13) Subjective pos wheezing and coughing no cp Objective Last 24 Hour Vital Signs Date Time Temp Pulse Resp B/P (MAP) Pulse Ox O2 Delivery O2 Flow Rate FiO2 03/22/19 20:56 Nasal Cannula 2.0 28 03/22/19 16:19 86 18 100 Nasal Cannula 2.0 28 79 20 98 03/22/19 16:00 98.4 108 21 143/74 (97) 96 03/22/19 16:00 108 03/22/19 13:22 86 18 100 Nasal Cannula 2.0 28 88 20 99 03/22/19 13:10 86 18 100 Room Air 88 18 98 03/22/19 12:00 85 03/22/19 12:00 98.1 81 18 133/63 (86) 97 03/22/19 09:00 Nasal Cannula 2.0 03/22/19 08:00 98.1 90 18 135/61 (85) 99 03/22/19 08:00 98 03/22/19 07:51 98 20 100 Nasal Cannula 2.0 28 76 20 97 03/22/19 07:32 Nasal Cannula 2.0 28 03/22/19 07:32 98 18 100 Room Air 97 18 93 03/22/19 04:00 82 03/22/19 04:00 99.0 87 18 124/57 (79) 87 03/22/19 01:15 81 20 100 Room Air 84 20 99 03/22/19 00:00 78 03/21/19 23:48 98.4 88 18 116/51 (72) 95 Intake and Output 03/21/19 03/22/19 19:00 07:00 Intake Total 900 ml Balance 900 ml Intake Oral 900 ml # Voids 2 2 Laboratory Tests 03/22/19 06:26: White Blood Count 15.4#H, Red Blood Count 4.29, Hemoglobin 11.5L, Hematocrit 35.1L, Mean Corpuscular Volume 82, Mean Corpuscular Hemoglobin 26.8L, Mean Corpuscular Hemoglobin Concent 32.7, Red Cell Distribution Width 13.2, Platelet Count 185, Mean Platelet Volume 5.4L, Neutrophils (%) (Auto) 84.3H, Lymphocytes (%) (Auto) 9.5L, Monocytes (%) (Auto) 5.9, Eosinophils (%) (Auto) 0.0, Basophils (%) (Auto) 0.2, Sodium Level 142, Potassium Level 4.5, Chloride Level 107, Carbon Dioxide Level 27, Anion Gap 8, Blood Urea Nitrogen 18, Creatinine 1.1, Estimat Glomerular Filtration Rate , Glucose Level 122H, Calcium Level 9.0 Height (Feet): 5 Height (Inches): 4.00 Weight (Pounds): 160 General Appearance: WD/WN, no apparent distress Neck: supple Cardiovascular: normal rate Respiratory/Chest: expiratory wheezing Abdomen: soft Federico Em MD Mar 22, 2019 22:18
[2019-03-22 23:31] VITALS: BP 154/74
--- NOTE | 2019-03-23 | Progress Note ---
DATE: 03/22/2019 CARDIOLOGY PROGRESS NOTE SUBJECTIVE: The patient states she still has cough, congestion, and more wheezing than yesterday. She is remaining on oxygen. Her appetite is good, but she does not like the food. OBJECTIVE: VITAL SIGNS: Blood pressure 135/61, pulse 90, respirations 18, and afebrile. Monitored rhythm, sinus. HEENT: Oropharynx clear. No thrush. NECK: Supple. No evidence of accessory muscle use. LUNGS: Coarse breath sounds, rhonchi, and expiratory wheezes. CARDIAC: Regular rhythm and rate. Normal S1, S2 with a fourth heart sound. ABDOMEN: Soft and nontender. EXTREMITIES: No edema. IMPRESSION: 1. Acute bronchospasm. 2. Acute bronchitis. 3. Hypertensive heart disease. 4. Stable angina. 5. Coronary artery disease. PLAN: 1. Steroid taper once bronchospasm improves. 2. Empiric antimicrobials. 3. Bronchodilators and respiratory hygiene. 4. DVT prophylaxis. 5. Maintain anti-platelet and anti-lipid drugs. 6. No additional antihypertensives. 7. Discontinue cardiac monitoring. 8. Consider series. Phililp Martinez M.D. DR: HUNTER JOB#: [id number] CC:
--- NOTE | 2019-03-23 00:54 | NUR ---
HAND-OFF: Report given to PIETRO Russo. Pt stable.Pt now in 301-2.
--- NOTE | 2019-03-23 01:06 | NUR ---
NURSE NOTES: Received report from 2E telemetry nurse PIETRO Conklin. Patient is coughing phlegm, c/o of SOB with activity on 2L nasal cannula. Patient requesting respiratory therapy. RT Ira called. Skin intact. Alert and oriented x4. No c/o pain at this time. Ambulates with cane to bedside commode. Will continue to monitor.
[2019-03-23] MEDS ORDERED: guaiFENesin w/Codeine 5ml Liq ud ORAL PRN (01:14)
[2019-03-23] MEDS ORDERED: Zolpidem 5mg tab ORAL PRN (01:17)
[2019-03-23] MEDS ORDERED: Albuterol/Ipratropium 3ml neb HHN PRN (02:30)
--- NOTE | 2019-03-23 07:26 | NUR ---
NURSE NOTES: Pt is alert able to answer questions appropriately. States she feels better than when she first arrived. " I still have a cough" Pt informed that she has cough medication available . Call light is in reach
--- NOTE | 2019-03-23 07:33 | NUR ---
HAND-OFF: Report given to PIETRO Mccracken. Patient in stable condition.
[2019-03-23 08:00] VITALS: BP 139/68
[2019-03-23] MEDS: Albuterol/Ipratropium 3ml neb HHN SCH ×3 (08:24→19:30)
--- NOTE | 2019-03-23 08:30 | NUR ---
NURSE NOTES: Pt currently receiving Breathing Treatments will provide cough medication as soon as possible
[2019-03-23] MEDS ORDERED: Solu-MEDROL 40mg Inj IVP SCH (09:00)
--- NOTE | 2019-03-23 09:14 | Pulmonology Progress Note ---
Assessment/Plan Problems: (1) Acute bronchitis (2) COPD exacerbation (3) Upper respiratory infection (4) Sinusitis Assessment/Plan ASSESSMENT: The patient is an 83-year-old female, nonsmoker with history of chronic cough, asthma, upper airway cough syndrome, postnasal drip, GERD, chronic rhinosinusitis, prior endoscopic sinus surgery, bronchiectasis, CAD status post PCI, hypertension, hyperlipidemia, degenerative disk disease, chronic low back pain, and prior DVT, PE, presenting with an acute exacerbation of her asthma, likely precipitated by URI/bronchitis. PROBLEM LIST: 1. Asthma with acute exacerbation. 2. Likely antecedent URI/bronchitis. 3. Bronchiectasis. 4. Upper airway cough syndrome/postnasal drip. 5. GERD. 6. History of chronic rhinosinusitis and endoscopic sinus surgery x2. 7. CAD, status post PCI, hypertension, hyperlipidemia. 8. DJD/DDD with chronic low back pain. 9. Remote history of postop DVT/PE in 2000 after cervical spine surgery. 10. Leukocytosis, likely steroid effect TREATMENT PLAN: 1. Optimize pulmonary hygiene/mobilize as tolerated. 2. Continue doxycycline and Rocephin (D4). 3. Titrate FiO2 to keep saturations greater than 90%. 4. Zhqrr-fuh-unyal and p.r.n. DuoNebs. 5. Dec Solu-Medrol to 40 IV t.i.d. and taper 6. Add Budesonide HHN's BID 7. Monitor peak expiratory flow rates. 8. Monitor blood sugars and WCt on steroids. 9. Mucinex and p.r.n. Robitussin with codeine. 10. Continue Flonase 11. Continue PPI 12. Monitor volumes and renal function. 13. Aspiration precautions. 14. DVT prophylaxis, heparin subcutaneous. 15. The patient is a Full Code. Subjective Allergies: Coded Allergies: ACETAMINOPHEN (Verified Allergy, Severe, 02/17/13) HYDROCODONE (Verified Allergy, Severe, 02/17/13) IBUPROFEN (Verified Allergy, Severe, 02/17/13) Subjective AFVSS O2 needs stable less wheezing + cough no FC no CP + SOB Objective Last 24 Hour Vital Signs Date Time Temp Pulse Resp B/P (MAP) Pulse Ox O2 Delivery O2 Flow Rate FiO2 03/23/19 08:36 83 20 99 Room Air 21 81 20 95 03/23/19 08:24 Nasal Cannula 2.0 28 03/23/19 01:40 90 18 100 Nasal Cannula 2.0 28 89 18 97 03/22/19 23:31 99 154/74 (100) 95 03/22/19 23:14 71 18 100 Nasal Cannula 2.0 28 03/22/19 21:00 Nasal Cannula 2.0 03/22/19 20:56 Nasal Cannula 2.0 28 03/22/19 20:00 94 03/22/19 20:00 98.4 100 21 145/75 (98) 94 03/22/19 16:19 86 18 100 Nasal Cannula 2.0 28 79 20 98 03/22/19 16:00 98.4 108 21 143/74 (97) 96 03/22/19 16:00 108 03/22/19 13:22 86 18 100 Nasal Cannula 2.0 28 88 20 99 03/22/19 13:10 86 18 100 Room Air 88 18 98 03/22/19 12:00 85 03/22/19 12:00 98.1 81 18 133/63 (86) 97 Intake and Output 03/22/19 03/23/19 19:00 07:00 Intake Total 800 ml Balance 800 ml Other 800 ml # Voids 3 General Appearance: WD/WN, no acute distress HEENT: normocephalic, atraumatic, anicteric Respiratory/Chest: rhonchi, expiratory wheezing, inspiratory wheezing Cardiovascular: normal peripheral pulses, normal rate, regular rhythm Abdomen: normal bowel sounds, soft, non tender, no organomegaly, non distended , no mass Extremities: no cyanosis, no clubbing, no edema Microbiology Date/Time Source Procedure Growth Status 03/20/19 15:40 Blood Blood Culture - Preliminary NO GROWTH AFTER 48 HOURS Resulted 03/20/19 15:25 Blood Blood Culture - Preliminary NO GROWTH AFTER 48 HOURS Resulted 03/20/19 23:25 Sputum Gram Stain - Final Resulted 03/20/19 23:25 Sputum Culture - Preliminary Gram Negative Derek Usual Upper Respiratory Jeannie Resulted 03/20/19 15:40 Nasal Nares - Final Complete 03/20/19 15:40 Nasal Nares - Final Complete Current Medications Medications (Trade) Dose Ordered Sig/Alfonso Route PRN Reason Start Time Stop Time Status Last Admin Dose Admin Al Hydroxide/Mg Hydroxide (Mylanta) 30 ml BIDPRN PRN ORAL Constipation 03/23/19 01:15 04/19/19 01:14 Albuterol/ Ipratropium (Albuterol/ Ipratropium) 3 ml Q4H HHN 03/23/19 10:30 03/25/19 18:29 UNV Albuterol/ Ipratropium (Albuterol/ Ipratropium) 3 ml Q4H PRN HHN Shortness of Breath 03/23/19 02:30 03/23/19 10:30 Albuterol/ Ipratropium (Albuterol/ Ipratropium) 3 ml Q6HRT HHN 03/23/19 07:00 03/26/19 06:59 03/23/19 08:24 Aspirin (ASA) 81 mg DAILY ORAL 03/23/19 09:00 04/21/19 08:59 Ceftriaxone Sodium 1 gm/ Dextrose 55 ml @ 110 mls/hr Q12HR@0000,1200 IVPB 03/23/19 12:00 03/28/19 00:00 Doxycycline Monohydrate (Doxycycline Monohydrate) 100 mg Q12HR ORAL 03/23/19 09:00 03/27/19 20:59 Fluticasone Propionate (Flonase) 1 spray TWICE A DAY NASAL 03/23/19 09:00 04/20/19 17:59 Guaifenesin (Mucinex ER) 600 mg TWICE A DAY ORAL 03/23/19 09:00 04/20/19 17:59 Guaifenesin/ Codeine Phosphate (Robitussin with codeine) 5 ml Q6H PRN ORAL For Cough 03/23/19 01:14 04/20/19 01:13 Heparin Sodium (Porcine) (Heparin 5000 units/ml) 5,000 units EVERY 12 HOURS SUBQ 03/23/19 09:00 04/20/19 20:59 Magnesium Hydroxide (Mom) 30 ml BIDPRN PRN ORAL Constipation 03/23/19 01:15 04/19/19 01:14 Methylprednisolone Sodium Succinate (Solu-MEDROL) 60 mg TID IVP 03/23/19 09:00 04/19/19 20:59 Montelukast Sodium (Singulair) 10 mg QPM ORAL 03/23/19 16:30 04/20/19 16:29 Pantoprazole (Protonix) 40 mg DAILY ORAL 03/23/19 09:00 04/21/19 08:59 Promethazine HCl/ Codeine (Phenergan with Codeine) 5 ml Q6H PRN ORAL For Cough 03/23/19 06:30 04/20/19 12:29 Zolpidem Tartrate (Ambien) 5 mg HSPRN PRN ORAL Insomnia 03/23/19 01:17 03/27/19 01:16 Nishant Sam MD Mar 23, 2019 09:14
[2019-03-23] MEDS: guaiFENesin ER 600mg tab ORAL SCH ×2 (09:19→18:26)
[2019-03-23] MEDS: Doxycycline Monohydrate 100mg ORAL SCH ×2 (09:19→21:34)
[2019-03-23] MEDS: Aspirin Baby 81mg ORAL SCH (09:20)
[2019-03-23] MEDS: Heparin 5000 units/ml inj SUBQ SCH ×2 (09:21→21:39)
[2019-03-23] MEDS: Flonase Nasal Inhaler 16gm NASAL SCH ×2 (10:26→18:26)
[2019-03-23] MEDS ORDERED: Albuterol/Ipratropium 3ml neb HHN SCH (10:30)
--- NOTE | 2019-03-23 10:42 | Diagnostic Imaging Report ---
Indications: Shortness of breath, cough, congestion, wheezing Technique: Spiral images obtained through the maxillofacial sinuses. No IV contrast utilized. Multiplanar reconstructions were generated.Total dose length product 574 mGycm. CTDIvol(s) 25 mGy. Dose reduction achieved using automated exposure control Comparison: 12/24/2013 Findings: There is evidence of prior sinus surgery, with nasoantral windows present bilaterally involving the medial maxillary and ethmoid floors. Despite this, there is near complete opacification of the left maxillary sinus and opacification of much of the right maxillary sinus. The frontal sinuses are nearly completely opacified, and there is extensive ethmoid sinus opacification. The sphenoid sinuses demonstrate mild mucosal thickening. There is minimal nasal septal deviation. There is evidence of prior bilateral cataract surgery. No acute fractures. There is evidence of prior dental extractions. There is evidence of prior cervical spine fusion surgery. The included intracranial structures are unremarkable. Impression: Evidence of prior sinus surgery Extensive pansinusitis, as described Incidental findings as noted The CT scanner at [facility] is accredited by the [employer] and the scans are performed using protocols designed to limit radiation exposure to as low as reasonably achievable to attain images of sufficient resolution adequate for diagnostic evaluation.
[2019-03-23] MEDS: Budesonide HHN 0.25mg/2ml ud HHN SCH ×2 (10:53→23:09)
[2019-03-23] MEDS: Milk of Magnesia 30ml Ud ORAL PRN (11:46)
[2019-03-23] MEDS: cefTRIAXone 1 GM in D5W 55 ML IVPB SCH ×2 (11:47→23:12)
[2019-03-23 12:00] VITALS: BP 140/71
[2019-03-23] MEDS: Benzonatate 100mg Perles ORAL SCH ×2 (13:00→18:26)
--- NOTE | 2019-03-23 13:09 | NUR ---
NURSE NOTES: Dr Sam phoned for clarification of order, ti inquire which Cough Medication Routine Phenergan or Robitussin
[2019-03-23] MEDS ORDERED: guaiFENesin w/Codeine 5ml Liq ud ORAL SCH (13:14)
[2019-03-23] MEDS: Promethazine/Codeine 5ml UD ORAL PRN ×2 (14:48→23:27)
[2019-03-23] MEDS: Solu-MEDROL 40mg Inj IVP SCH ×2 (14:48→18:26)
--- NOTE | 2019-03-23 14:52 | NUR ---
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 98.1 HR 100 RR 27 B/P 159/85 IS: IV BOLUS 500ML SOLU MEDROL IV ADMITTED TO TELE TELE STATUS DCP RETURN HOME
[2019-03-23 16:00] VITALS: BP 149/68
--- NOTE | 2019-03-23 16:30 | NUR ---
NURSE NOTES: Pt had a visitor today, her daughter sat at bedside. Pt had routine breathing treatment , IV site window reinforced bandage changed. Pt has a productive cough yellow in color. From previous report sputum was green like in color. MOM given due to pt not having a bm in several days. Does not recall how many days it has been. Abdomen is soft pt is belching . Call light is in reach Bed is in safe position. Current plan will be followed. phoned x 2 to inquire if he wanted the PRN cough medication changed to routine
--- NOTE | 2019-03-23 17:25 | NUR ---
NURSE NOTES: Dr Called to follow up on Phenergan cough syrup Dr wanted to be made routine. Pt is on multiple routine medications , related to congestion
[2019-03-23] MEDS: Montelukast 10mg tablet ORAL SCH (17:41)
--- NOTE | 2019-03-23 19:00 | Progress Note ---
DATE: 03/23/2019 CARDIOLOGY PROGRESS NOTE SUBJECTIVE: The patient still has cough and congestion. Sputum has a gram-negative rosemary. I ordered a CT of the sinuses yesterday and it reveals pansinusitis. PHYSICAL EXAMINATION: VITAL SIGNS: Blood pressure 154/74, pulse 89, and respirations 18. HEENT: Some sinus tenderness. LUNGS: Bilateral breath sounds. Coarse rhonchi. CARDIAC: Regular rhythm and rate. Normal S1, S2. ABDOMEN: Soft. EXTREMITIES: No edema. IMPRESSION: 1. Gram-negative upper respiratory tract infection. 2. Pansinusitis. 3. Gastroesophageal reflux disease. 4. Stable angina. 5. Coronary artery disease with history of coronary stent. 6. Hypertension with hypertensive heart disease. 7. Diastolic dysfunction with no signs of acute congestive heart failure. 8. Remote history of DVT and PE. PLAN: 1. Respiratory hygiene. 2. Antimicrobials. 3. DVT prophylaxis. 4. Decongestants. 5. Anti-platelet therapy and anti-lipid therapy. 6. Maintain baseline cardiovascular regimen. 7. Adjust antimicrobials once final cultures completed. Phillip Martinez M.D. DR: ASHWIN JOB#: [id number] CC:
--- NOTE | 2019-03-23 19:49 | NUR ---
NURSE NOTES: Received report from PIETRO Mccracken. Patient in stable condition, alert and oriented x4 resting in bed. She c/o of constant shortness of breath relieved by breathing treatments, RT at bedside. Right IV is intact and flushed with 5cc NS. No c/o of pain at this time. Phlegm is yellow and thick mixed with clear thin secretions. Bed in low and locked position with call light within reach. Will continue to monitor.
[2019-03-23 20:00] VITALS: BP 130/70
[2019-03-23] MEDS ORDERED: Tubing IV Secondary IV ONE (20:36)
[2019-03-23] MEDS ORDERED: NS 275ml ONE (20:36)
--- NOTE | 2019-03-23 20:37 | NUR ---
HAND-OFF: Report given to Karan WESTBROOK.
[2019-03-24] VITALS: BP 135/64
[2019-03-24] MEDS: Albuterol/Ipratropium 3ml neb HHN SCH ×4 (01:27→19:10)
[2019-03-24 04:00] VITALS: BP 143/83
--- NOTE | 2019-03-24 07:54 | NUR ---
HAND-OFF: Report given to PIETRO Garvey. Patient in stable condition.
[2019-03-24 08:00] VITALS: BP 146/78
--- NOTE | 2019-03-24 08:00 | NUR ---
NURSE NOTES: Patient is awake and alert,noted SOB on exertion and patient has a productive cough,patient will receive breathing treatments as ordered. Saline lock to the right arm intact.Bed alarm is on,call light within reach.will assist patient with ADLs.
[2019-03-24] MEDS: Benzonatate 100mg Perles ORAL SCH ×3 (08:17→17:34)
[2019-03-24] MEDS: Flonase Nasal Inhaler 16gm NASAL SCH ×2 (08:18→17:33)
[2019-03-24] MEDS: Doxycycline Monohydrate 100mg ORAL SCH ×2 (08:18→20:53)
[2019-03-24] MEDS: Promethazine/Codeine 5ml UD ORAL PRN ×2 (08:18→22:31)
[2019-03-24] MEDS: guaiFENesin ER 600mg tab ORAL SCH ×2 (08:18→17:33)
[2019-03-24] MEDS: Solu-MEDROL 40mg Inj IVP SCH ×3 (08:18→17:33)
[2019-03-24] MEDS: Aspirin Baby 81mg ORAL SCH (08:18)
[2019-03-24] MEDS: Milk of Magnesia 30ml Ud ORAL PRN (08:19)
[2019-03-24] MEDS: Heparin 5000 units/ml inj SUBQ SCH ×2 (08:19→20:55)
[2019-03-24] MEDS: Budesonide HHN 0.25mg/2ml ud HHN SCH ×2 (08:51→22:10)
[2019-03-24 12:00] VITALS: BP 145/76
[2019-03-24] MEDS: cefTRIAXone 1 GM in D5W 55 ML IVPB SCH (12:13)
--- NOTE | 2019-03-24 14:03 | Pulmonology Progress Note ---
Assessment/Plan Problems: (1) Acute bronchitis (2) COPD exacerbation (3) Upper respiratory infection (4) Sinusitis Assessment/Plan ASSESSMENT: The patient is an 83-year-old female, nonsmoker with history of chronic cough, asthma, upper airway cough syndrome, postnasal drip, GERD, chronic rhinosinusitis, prior endoscopic sinus surgery, bronchiectasis, CAD status post PCI, hypertension, hyperlipidemia, degenerative disk disease, chronic low back pain, and prior DVT, PE, presenting with an acute exacerbation of her asthma, likely precipitated by URI/bronchitis. PROBLEM LIST: 1. Asthma with acute exacerbation. 2. Likely antecedent URI/bronchitis. 3. Bronchiectasis. 4. Upper airway cough syndrome/postnasal drip. 5. GERD. 6. History of chronic rhinosinusitis and endoscopic sinus surgery x2. 7. CAD, status post PCI, hypertension, hyperlipidemia. 8. DJD/DDD with chronic low back pain. 9. Remote history of postop DVT/PE in 2000 after cervical spine surgery. 10. Leukocytosis, likely steroid effect TREATMENT PLAN: 1. Optimize pulmonary hygiene/mobilize as tolerated. 2. Levaquin and Rocephin (D5). 3. Titrate FiO2 to keep saturations greater than 90%. 4. Zevka-ulz-bognm and p.r.n. DuoNebs. 5. Dec Solu-Medrol to 40 IV BID and taper 6. Budesonide HHN's BID 7. Monitor peak expiratory flow rates. 8. Monitor blood sugars and WCt on steroids. 9. Mucinex and p.r.n. Robitussin with codeine. 10. Continue Flonase 11. Continue PPI 12. Monitor volumes and renal function. 13. Aspiration precautions. 14. DVT prophylaxis, heparin subcutaneous. 15. The patient is a Full Code. Subjective Allergies: Coded Allergies: ACETAMINOPHEN (Verified Allergy, Severe, 02/17/13) HYDROCODONE (Verified Allergy, Severe, 02/17/13) IBUPROFEN (Verified Allergy, Severe, 02/17/13) Subjective AFVSS O2 needs stable less wheezing + cough no FC no CP + SOB Objective Last 24 Hour Vital Signs Date Time Temp Pulse Resp B/P (MAP) Pulse Ox O2 Delivery O2 Flow Rate FiO2 03/24/19 13:03 94 20 99 Nasal Cannula 2.0 28 93 20 100 03/24/19 12:00 97.5 76 18 145/76 (99) 100 03/24/19 10:07 Nasal Cannula 2.0 03/24/19 09:00 Nasal Cannula 2.0 03/24/19 08:48 76 20 99 Nasal Cannula 2.0 28 75 20 96 03/24/19 08:47 77 20 99 Nasal Cannula 2.0 28 75 20 96 03/24/19 08:46 Nasal Cannula 2.0 28 03/24/19 08:00 98.4 78 20 146/78 (100) 98 03/24/19 04:00 98.2 79 20 143/83 (103) 98 03/24/19 01:27 79 18 99 Nasal Cannula 2.0 28 74 18 96 03/24/19 00:00 97.8 82 18 135/64 (87) 98 03/23/19 23:10 86 18 98 Room Air 21 88 18 94 03/23/19 21:00 Nasal Cannula 2.0 03/23/19 20:00 97.7 84 18 130/70 (90) 94 03/23/19 19:34 Room Air 21 03/23/19 19:30 106 18 99 Room Air 21 107 18 93 03/23/19 16:00 97.9 93 18 149/68 (95) 03/23/19 14:42 90 14 98 Nasal Cannula 2.0 28 73 14 98 Intake and Output 03/23/19 03/24/19 19:00 07:00 Intake Total 110 ml 240 ml Balance 110 ml 240 ml Intake Oral 240 ml IV Total 110 ml # Voids 6 General Appearance: WD/WN, no acute distress HEENT: normocephalic, atraumatic, anicteric, mucous membranes moist Respiratory/Chest: rhonchi, expiratory wheezing Cardiovascular: normal peripheral pulses, normal rate, regular rhythm Abdomen: normal bowel sounds, soft, non tender, no organomegaly, non distended , no mass Extremities: no cyanosis, no clubbing, no edema Current Medications Medications (Trade) Dose Ordered Sig/Alfonso Route PRN Reason Start Time Stop Time Status Last Admin Dose Admin Al Hydroxide/Mg Hydroxide (Mylanta) 30 ml BIDPRN PRN ORAL Constipation 03/23/19 01:15 04/19/19 01:14 Albuterol/ Ipratropium (Albuterol/ Ipratropium) 3 ml Q6HRT HHN 03/23/19 07:00 03/26/19 06:59 03/24/19 13:00 Aspirin (ASA) 81 mg DAILY ORAL 03/23/19 09:00 04/21/19 08:59 03/24/19 08:18 Benzonatate (Tessalon Perles) 100 mg THREE TIMES A DAY ORAL 03/23/19 13:00 04/22/19 12:59 03/24/19 12:20 Budesonide (Pulmicort) 0.25 mg Q12HRT [facility] 03/23/19 10:00 04/22/19 09:59 03/24/19 08:51 Doxycycline Monohydrate (Doxycycline Monohydrate) 100 mg Q12HR ORAL 03/23/19 09:00 03/27/19 20:59 03/24/19 08:18 Fluticasone Propionate (Flonase) 1 spray TWICE A DAY NASAL 03/23/19 09:00 04/20/19 17:59 03/24/19 08:18 Guaifenesin (Mucinex ER) 600 mg TWICE A DAY ORAL 03/23/19 09:00 04/20/19 17:59 03/24/19 08:18 Heparin Sodium (Porcine) (Heparin 5000 units/ml) 5,000 units EVERY 12 HOURS SUBQ 03/23/19 09:00 04/20/19 20:59 03/24/19 08:19 Magnesium Hydroxide (Mom) 30 ml BIDPRN PRN ORAL Constipation 03/23/19 01:15 04/19/19 01:14 03/24/19 08:19 Methylprednisolone Sodium Succinate (Solu-MEDROL) 40 mg TID IVP 03/23/19 13:00 04/19/19 20:59 03/24/19 12:20 Montelukast Sodium (Singulair) 10 mg QPM ORAL 03/23/19 16:30 04/20/19 16:29 03/23/19 17:41 Pantoprazole (Protonix) 40 mg DAILY ORAL 03/23/19 09:00 04/21/19 08:59 03/24/19 08:18 Promethazine HCl/ Codeine (Phenergan with Codeine) 5 ml Q6H PRN ORAL For Cough 03/23/19 06:30 04/20/19 12:29 03/24/19 08:18 Zolpidem Tartrate (Ambien) 5 mg HSPRN PRN ORAL Insomnia 03/23/19 01:17 03/27/19 01:16 Nishant Sam MD Mar 24, 2019 14:03
[2019-03-24 16:00] VITALS: BP 147/68
[2019-03-24] MEDS: Montelukast 10mg tablet ORAL SCH (16:47)
--- NOTE | 2019-03-24 18:00 | NUR ---
NURSE NOTES: Patient resting received breathing treatments as ordered.patient able to cough up sputum,patient state mucus is getting cleare compared to yesterday. patient able to ambulate to the bathroom using her cane,gait is steady. When in bed,call light within reach and bed alarm is on.
[2019-03-24 19:13] LABS: HEMOGLOBIN 12.5 G/DL (12.0-16.0); MEAN CORPUSCULAR VOLUME 82 FL (80-99); PLATELET COUNT 181 K/UL (150-450); RED BLOOD COUNT 4.76 M/UL (4.20-5.40); WHITE BLOOD COUNT 9.4 K/UL (4.8-10.8)
[2019-03-24 19:14] LABS: BASOPHILS % (AUTO) 0.3 % (0.0-2.0); LYMPHOCYTES % (AUTO) 8.5 % (20.0-45.0); MONOCYTES % (AUTO) 4.8 % (1.0-10.0); NEUTROPHILS % (AUTO) 86.3 % (45.0-75.0)
--- NOTE | 2019-03-24 19:25 | NUR ---
NURSE NOTES: Report taken from PIETRO Garvey. Patient is awake and in bed, A&Ox4. No signs of distress on 2L NC. Complaining of chest pain primarily from the cough, /10. No skin issues. IV site c/d/i and patent, no fluids running per orders. Patient ambulates with cane at bedside. Stated that she is getting some ocular pressure, due to previous cataract surgery, and she has not had her eye drops in a few days. Will contact MD to get orders for eye drops. Bed in lowest position, call light within reach.
--- NOTE | 2019-03-24 19:33 | NUR ---
HAND-OFF: Report given to Sergio WESTBROOK, pt in stable condition. - During my shift pt was able to ambulate with staff assistance.
[2019-03-24 20:00] VITALS: BP 158/73
--- NOTE | 2019-03-24 20:00 | General Progress Note ---
Assessment/Plan Assessment/Plan: asthma bronchitis chronic back pain htn pulmonary hygiene abx steroids bp controlled dvt and ulcer prohylaxis oob PT Subjective Allergies: Coded Allergies: ACETAMINOPHEN (Verified Allergy, Severe, 02/17/13) HYDROCODONE (Verified Allergy, Severe, 02/17/13) IBUPROFEN (Verified Allergy, Severe, 02/17/13) Subjective note reflects yesterdays visit still wheezing and coughing Objective Last 24 Hour Vital Signs Date Time Temp Pulse Resp B/P (MAP) Pulse Ox O2 Delivery O2 Flow Rate FiO2 03/24/19 19:14 79 18 99 Nasal Cannula 2.0 28 78 18 98 03/24/19 19:13 Nasal Cannula 2.0 28 03/24/19 16:00 98.2 72 18 147/68 (94) 98 03/24/19 13:03 94 20 99 Nasal Cannula 2.0 28 93 20 100 03/24/19 12:00 97.5 76 18 145/76 (99) 100 03/24/19 10:07 Nasal Cannula 2.0 03/24/19 09:00 Nasal Cannula 2.0 03/24/19 08:48 76 20 99 Nasal Cannula 2.0 28 75 20 96 03/24/19 08:47 77 20 99 Nasal Cannula 2.0 28 75 20 96 03/24/19 08:46 Nasal Cannula 2.0 28 03/24/19 08:00 98.4 78 20 146/78 (100) 98 03/24/19 04:00 98.2 79 20 143/83 (103) 98 03/24/19 01:27 79 18 99 Nasal Cannula 2.0 28 74 18 96 03/24/19 00:00 97.8 82 18 135/64 (87) 98 03/23/19 23:10 86 18 98 Room Air 21 88 18 94 03/23/19 21:00 Nasal Cannula 2.0 03/23/19 20:00 97.7 84 18 130/70 (90) 94 Intake and Output 03/23/19 03/24/19 18:59 06:59 Intake Total 110 ml 240 ml Balance 110 ml 240 ml Intake Oral 240 ml IV Total 110 ml # Voids 6 Laboratory Tests 03/24/19 18:40: White Blood Count 9.4, Red Blood Count 4.76, Hemoglobin 12.5, Hematocrit 39.0, Mean Corpuscular Volume 82, Mean Corpuscular Hemoglobin 26.3L, Mean Corpuscular Hemoglobin Concent 32.1, Red Cell Distribution Width 12.0, Platelet Count 181, Mean Platelet Volume 6.4L, Neutrophils (%) (Auto) 86.3H, Lymphocytes (%) (Auto) 8.5L, Monocytes (%) (Auto) 4.8, Eosinophils (%) (Auto) 0.0, Basophils (%) (Auto ) 0.3 Height (Feet): 5 Height (Inches): 4.00 Weight (Pounds): 160 General Appearance: WD/WN, no apparent distress Neck: supple Cardiovascular: normal rate Respiratory/Chest: expiratory wheezing Abdomen: soft Edema: no edema noted Arm (L), no edema noted Arm (R), no edema noted Leg (L), no edema noted Leg (R), no edema noted Pedal (L), no edema noted Pedal (R), no edema noted Generalized Federico Em MD Mar 24, 2019 20:00
--- NOTE | 2019-03-24 20:03 | General Progress Note ---
Assessment/Plan Assessment/Plan: asthma exacerbation bronchitis chronic back pain htn pulmonary hygiene abx steroids taper bp controlled dvt and ulcer prohylaxis oob PT Subjective Allergies: Coded Allergies: ACETAMINOPHEN (Verified Allergy, Severe, 02/17/13) HYDROCODONE (Verified Allergy, Severe, 02/17/13) IBUPROFEN (Verified Allergy, Severe, 02/17/13) Subjective still coughing, decreaed wheezing Objective Last 24 Hour Vital Signs Date Time Temp Pulse Resp B/P (MAP) Pulse Ox O2 Delivery O2 Flow Rate FiO2 03/24/19 19:14 79 18 99 Nasal Cannula 2.0 28 78 18 98 03/24/19 19:13 Nasal Cannula 2.0 28 03/24/19 16:00 98.2 72 18 147/68 (94) 98 03/24/19 13:03 94 20 99 Nasal Cannula 2.0 28 93 20 100 03/24/19 12:00 97.5 76 18 145/76 (99) 100 03/24/19 10:07 Nasal Cannula 2.0 03/24/19 09:00 Nasal Cannula 2.0 03/24/19 08:48 76 20 99 Nasal Cannula 2.0 28 75 20 96 03/24/19 08:47 77 20 99 Nasal Cannula 2.0 28 75 20 96 03/24/19 08:46 Nasal Cannula 2.0 28 03/24/19 08:00 98.4 78 20 146/78 (100) 98 03/24/19 04:00 98.2 79 20 143/83 (103) 98 03/24/19 01:27 79 18 99 Nasal Cannula 2.0 28 74 18 96 03/24/19 00:00 97.8 82 18 135/64 (87) 98 03/23/19 23:10 86 18 98 Room Air 21 88 18 94 03/23/19 21:00 Nasal Cannula 2.0 Intake and Output 03/23/19 03/24/19 18:59 06:59 Intake Total 110 ml 240 ml Balance 110 ml 240 ml Intake Oral 240 ml IV Total 110 ml # Voids 6 Laboratory Tests 03/24/19 18:40: White Blood Count 9.4, Red Blood Count 4.76, Hemoglobin 12.5, Hematocrit 39.0, Mean Corpuscular Volume 82, Mean Corpuscular Hemoglobin 26.3L, Mean Corpuscular Hemoglobin Concent 32.1, Red Cell Distribution Width 12.0, Platelet Count 181, Mean Platelet Volume 6.4L, Neutrophils (%) (Auto) 86.3H, Lymphocytes (%) (Auto) 8.5L, Monocytes (%) (Auto) 4.8, Eosinophils (%) (Auto) 0.0, Basophils (%) (Auto ) 0.3 Height (Feet): 5 Height (Inches): 4.00 Weight (Pounds): 160 General Appearance: WD/WN, no apparent distress Neck: supple Cardiovascular: normal rate Respiratory/Chest: expiratory wheezing Edema: no edema noted Arm (L), no edema noted Arm (R), no edema noted Leg (L), no edema noted Leg (R), no edema noted Pedal (L), no edema noted Pedal (R), no edema noted Generalized Federico Em MD Mar 24, 2019 20:03
[2019-03-24] MEDS: Timoptic 0.25% Op Soln 2.5ml BOTH EYES SCH (22:32)
[2019-03-25] VITALS (7 sets, daily range): BP systolic 128–149; BP diastolic 57–87
[2019-03-25] MEDS: Albuterol/Ipratropium 3ml neb HHN SCH ×4 (01:02→19:26)
--- NOTE | 2019-03-25 07:21 | NUR ---
HAND-OFF: Report given to PIETRO Garvey. Patient is awake and stable.
--- NOTE | 2019-03-25 08:00 | NUR ---
NURSE NOTES: Received report Sergio RN, pt a/a/o x4 laying in bed with no signs of distress or other issues at this time. continues with productive cough, per pt's is getting better (clear/yellowish sputum). IV on the right FA gauge#20 heplock. pt is able to ambulate to the restroom with the use of a cane. call light within reach, bed in lowest position. side rale sup x2. I will f/u as needed.
[2019-03-25] MEDS: Heparin 5000 units/ml inj SUBQ SCH ×2 (08:24→20:51)
[2019-03-25] MEDS: Flonase Nasal Inhaler 16gm NASAL SCH ×2 (08:24→17:03)
[2019-03-25] MEDS: Timoptic 0.25% Op Soln 2.5ml BOTH EYES SCH ×2 (08:25→17:03)
[2019-03-25] MEDS: Doxycycline Monohydrate 100mg ORAL SCH ×2 (08:25→20:51)
[2019-03-25] MEDS: guaiFENesin ER 600mg tab ORAL SCH ×2 (08:25→17:04)
[2019-03-25] MEDS: Aspirin Baby 81mg ORAL SCH (08:25)
[2019-03-25] MEDS: Solu-MEDROL 40mg Inj IVP SCH ×2 (08:25→17:03)
[2019-03-25] MEDS: Benzonatate 100mg Perles ORAL SCH ×3 (08:25→17:05)
[2019-03-25] MEDS: Budesonide HHN 0.25mg/2ml ud HHN SCH ×2 (09:20→22:43)
[2019-03-25] MEDS: Promethazine/Codeine 5ml UD ORAL PRN ×2 (12:10→22:42)
--- NOTE | 2019-03-25 13:21 | Pulmonology Progress Note ---
Assessment/Plan Problems: (1) Acute bronchitis (2) COPD exacerbation (3) Upper respiratory infection (4) Sinusitis Assessment/Plan ASSESSMENT: The patient is an 83-year-old female, nonsmoker with history of chronic cough, asthma, upper airway cough syndrome, postnasal drip, GERD, chronic rhinosinusitis, prior endoscopic sinus surgery, bronchiectasis, CAD status post PCI, hypertension, hyperlipidemia, degenerative disk disease, chronic low back pain, and prior DVT, PE, presenting with an acute exacerbation of her asthma, likely precipitated by URI/bronchitis. PROBLEM LIST: 1. Asthma with acute exacerbation. 2. Likely antecedent URI/bronchitis. 3. Bronchiectasis. 4. Upper airway cough syndrome/postnasal drip. 5. GERD. 6. History of chronic rhinosinusitis and endoscopic sinus surgery x2. 7. CAD, status post PCI, hypertension, hyperlipidemia. 8. DJD/DDD with chronic low back pain. 9. Remote history of postop DVT/PE in 2000 after cervical spine surgery. 10. Leukocytosis, likely steroid effect TREATMENT PLAN: 1. Optimize pulmonary hygiene/mobilize as tolerated. 2. Levaquin and Rocephin (D6/7). 3. Titrate FiO2 to keep saturations greater than 90%. 4. Zaelc-jfs-nywgt and p.r.n. DuoNebs. 5. Dec Solu-Medrol to 30 IV BID and taper 6. Budesonide HHN's BID 7. Monitor peak expiratory flow rates. 8. Monitor blood sugars and WCt on steroids. 9. Mucinex and p.r.n. Robitussin with codeine. 10. Continue Flonase 11. Continue PPI 12. Monitor volumes and renal function. 13. Aspiration precautions. 14. DVT prophylaxis, heparin subcutaneous. 15. The patient is a Full Code. Subjective Allergies: Coded Allergies: ACETAMINOPHEN (Verified Allergy, Severe, 02/17/13) HYDROCODONE (Verified Allergy, Severe, 02/17/13) IBUPROFEN (Verified Allergy, Severe, 02/17/13) Subjective AFVSS O2 needs stable less wheezing less cough no FC no CP + SOB Objective Last 24 Hour Vital Signs Date Time Temp Pulse Resp B/P (MAP) Pulse Ox O2 Delivery O2 Flow Rate FiO2 03/25/19 12:32 65 16 98 Room Air 21 67 17 96 03/25/19 12:00 97.9 68 18 143/58 (86) 97 03/25/19 09:30 67 17 100 Nasal Cannula 2.0 28 66 16 98 03/25/19 09:00 Nasal Cannula 2.0 03/25/19 08:00 97.6 61 18 137/57 (83) 99 03/25/19 07:24 65 16 99 Room Air 21 66 16 97 03/25/19 07:14 Room Air 21 03/25/19 03:45 98.3 60 18 143/67 (92) 96 03/25/19 01:02 86 18 99 Nasal Cannula 2.0 28 85 18 96 03/25/19 00:00 98.1 72 18 149/76 (100) 97 03/24/19 22:11 72 18 99 Nasal Cannula 2.0 28 71 18 95 03/24/19 21:00 Nasal Cannula 2.0 03/24/19 20:00 97.6 75 18 158/73 (101) 96 03/24/19 19:14 79 18 99 Nasal Cannula 2.0 28 78 18 98 03/24/19 19:13 Nasal Cannula 2.0 28 03/24/19 16:00 98.2 72 18 147/68 (94) 98 Intake and Output 03/24/19 03/25/19 19:00 07:00 Intake Total 850 ml 450 ml Balance 850 ml 450 ml Intake Oral 850 ml 450 ml # Voids 4 3 General Appearance: WD/WN, no acute distress HEENT: normocephalic, atraumatic, anicteric, mucous membranes moist Respiratory/Chest: chest wall non-tender, no accessory muscle use, inspiratory wheezing - decreased Cardiovascular: normal peripheral pulses, normal rate, regular rhythm Abdomen: normal bowel sounds, soft, non tender, no organomegaly, non distended , no mass Extremities: no cyanosis, no clubbing, no edema Laboratory Tests 03/24/19 18:40: White Blood Count 9.4, Red Blood Count 4.76, Hemoglobin 12.5, Hematocrit 39.0, Mean Corpuscular Volume 82, Mean Corpuscular Hemoglobin 26.3L, Mean Corpuscular Hemoglobin Concent 32.1, Red Cell Distribution Width 12.0, Platelet Count 181, Mean Platelet Volume 6.4L, Neutrophils (%) (Auto) 86.3H, Lymphocytes (%) (Auto) 8.5L, Monocytes (%) (Auto) 4.8, Eosinophils (%) (Auto) 0.0, Basophils (%) (Auto ) 0.3 Current Medications Medications (Trade) Dose Ordered Sig/Alfonso Route PRN Reason Start Time Stop Time Status Last Admin Dose Admin Al Hydroxide/Mg Hydroxide (Mylanta) 30 ml BIDPRN PRN ORAL Constipation 03/23/19 01:15 04/19/19 01:14 03/25/19 12:10 Albuterol/ Ipratropium (Albuterol/ Ipratropium) 3 ml Q6HRT N 03/23/19 07:00 03/26/19 06:59 03/25/19 12:22 Aspirin (ASA) 81 mg DAILY ORAL 03/23/19 09:00 04/21/19 08:59 03/25/19 08:25 Benzonatate (Tessalon Perles) 100 mg THREE TIMES A DAY ORAL 03/23/19 13:00 04/22/19 12:59 03/25/19 12:10 Budesonide (Pulmicort) 0.25 mg Q12HRT N 03/23/19 10:00 04/22/19 09:59 03/25/19 09:20 Doxycycline Monohydrate (Doxycycline Monohydrate) 100 mg Q12HR ORAL 03/23/19 09:00 03/27/19 20:59 03/25/19 08:25 Fluticasone Propionate (Flonase) 1 spray TWICE A DAY NASAL 03/23/19 09:00 04/20/19 17:59 03/25/19 08:24 Guaifenesin (Mucinex ER) 600 mg TWICE A DAY ORAL 03/23/19 09:00 04/20/19 17:59 03/25/19 08:25 Heparin Sodium (Porcine) (Heparin 5000 units/ml) 5,000 units EVERY 12 HOURS SUBQ 03/23/19 09:00 04/20/19 20:59 03/25/19 08:24 Levofloxacin 150 ml @ 150 mls/hr Q48H IVPB 03/24/19 15:00 03/31/19 14:59 03/24/19 15:16 Magnesium Hydroxide (Mom) 30 ml BIDPRN PRN ORAL Constipation 03/23/19 01:15 04/19/19 01:14 03/24/19 08:19 Methylprednisolone Sodium Succinate (Solu-MEDROL) 40 mg BID IVP 03/24/19 18:00 04/19/19 20:59 03/25/19 08:25 Montelukast Sodium (Singulair) 10 mg QPM ORAL 03/23/19 16:30 04/20/19 16:29 03/24/19 16:47 Pantoprazole (Protonix) 40 mg DAILY ORAL 03/23/19 09:00 04/21/19 08:59 03/25/19 08:25 Promethazine HCl/ Codeine (Phenergan with Codeine) 5 ml Q6H PRN ORAL For Cough 03/23/19 06:30 04/20/19 12:29 03/25/19 12:10 Timolol Maleate (Timoptic 0.25% Op Soln) 1 drop TWICE A DAY BOTH EYES 03/24/19 22:00 04/23/19 21:59 03/25/19 08:25 Zolpidem Tartrate (Ambien) 5 mg HSPRN PRN ORAL Insomnia 03/23/19 01:17 03/27/19 01:16 Nishant Sam MD Mar 25, 2019 13:21
[2019-03-25] MEDS: Montelukast 10mg tablet ORAL SCH (16:09)
--- NOTE | 2019-03-25 19:14 | NUR ---
HAND-OFF: Report given to Sergio WESTBROOK, pt in stable condition. - during my shift given Mylanta, however pt was not able to have a bowel movement. incoming nurse aware.
--- NOTE | 2019-03-25 19:15 | NUR ---
NURSE NOTES: Report taken from PIETRO Garvey. Patient is awake and in bed, A&Ox4. No signs of distress on 2L NC. Having some minor complaints of pain in her low back due to history of arthritis and was out of bed for some time today, 07/30. IV site c/d/i and patent, no fluids running per order. Skin is intact. Patient able to ambulate with cane at bedside. Bed in lowest position, call light within reach.
--- NOTE | 2019-03-25 22:15 | Progress Note ---
DATE: 03/25/2019 CARDIOLOGY PROGRESS NOTE SUBJECTIVE: The patient is seen with daughter at bedside. Current problems reviewed with both. OBJECTIVE: VITAL SIGNS: Blood pressure 143/67, pulse 60, respirations 18, and afebrile. HEENT: Some sinus tenderness. LUNGS: Coarse breath sounds with rhonchi. HEART: Regular rhythm and rate. Normal S1 and S2. ABDOMEN: Soft. EXTREMITIES: No edema. IMPRESSION: Improving. PLAN: 1. Continue therapy as is with steroid taper. 2. We will expect improved blood pressure parameters to follow with steroid taper. 3. Medication regimen reviewed and reconciled. Phillip Martinez M.D. DR: Lidia JOB#: [id number] CC:
--- NOTE | 2019-03-25 22:31 | Progress Note ---
DATE: 03/24/2019 CARDIOLOGY PROGRESS NOTE Late entry 03/24/2019. SUBJECTIVE: Still with cough. still difficult to mobilize. OBJECTIVE: VITAL SIGNS: Blood pressure 158/73, pulse 75, and respirations 18. LUNGS: Coarse breath sounds. Some sinus congestion and tenderness. HEART: Regular rhythm and rate. Normal S1 and S2 with a fourth heart sound. EXTREMITIES: Without calf tenderness or edema. IMPRESSION: 1. Acute bronchospasm. 2. Chronic obstructive pulmonary disease. 3. Pansinusitis. 4. Coronary artery disease, stable. 5. Angina. 6. No signs of acute congestive heart failure. 7. Hypertensive heart disease with slight blood pressure elevation. PLAN: 1. Plan of care in place. 2. Continuing steroids with taper. 3. Antimicrobials and respiratory hygiene. 4. Maintaining anti-platelet therapy and current cardiovascular regimen. 5. Expect improvement in blood pressure parameters with tapering of steroids. Phillip Martinez M.D. DR: Lidia JOB#: [id number] CC:
[2019-03-26] MEDS: Albuterol/Ipratropium 3ml neb HHN SCH ×3 (01:00→20:04)
--- NOTE | 2019-03-26 07:26 | NUR ---
HAND-OFF: Report given to PIETRO Regan. Patient is awake and stable.
--- NOTE | 2019-03-26 07:30 | NUR ---
NURSE NOTES: Patient is in bed awake and able to verbalize needs. Stable. Denies pain. Patient has productive cough. Plan of care discussed with patient, patient verbalized understanding. Patient encouraged to use call light for assistance, verbalized understanding. Patient is in bed in locked and lowest position with call light within reach. Will continue to monitor.
[2019-03-26 08:00] VITALS: BP 154/68
[2019-03-26] MEDS: Benzonatate 100mg Perles ORAL SCH ×3 (08:57→17:18)
[2019-03-26] MEDS: Aspirin Baby 81mg ORAL SCH (08:57)
[2019-03-26] MEDS: Solu-MEDROL 40mg Inj IVP SCH ×2 (08:57→17:17)
[2019-03-26] MEDS: Doxycycline Monohydrate 100mg ORAL SCH ×2 (08:58→20:36)
[2019-03-26] MEDS: guaiFENesin ER 600mg tab ORAL SCH ×2 (08:58→17:18)
[2019-03-26] MEDS: Heparin 5000 units/ml inj SUBQ SCH ×2 (08:59→20:39)
[2019-03-26] MEDS: Flonase Nasal Inhaler 16gm NASAL SCH ×2 (09:00→17:17)
[2019-03-26] MEDS: Timoptic 0.25% Op Soln 2.5ml BOTH EYES SCH ×2 (09:00→17:17)
--- NOTE | 2019-03-26 09:40 | NUR ---
NURSE NOTES: Received report from PIETRO Regan. Addendum: 03/26/19 at 2236 by Leela Garcia RN Wrong time stamp (1939 is correct time)
[2019-03-26] MEDS: Budesonide HHN 0.25mg/2ml ud HHN SCH (10:55)
[2019-03-26 12:00] VITALS: BP 161/74
[2019-03-26] MEDS: dilTIAZem HCl CD 180mg cap ORAL SCH (12:59)
[2019-03-26] MEDS: Promethazine/Codeine 5ml UD ORAL PRN ×2 (13:00→22:43)
--- NOTE | 2019-03-26 15:00 | NUR ---
RESPIRATORY NOTE: Unable to admin 1500 neb tx, due to higher level of triage/care. Will continue following tx's as ordered.
[2019-03-26 16:00] VITALS: BP 157/68
[2019-03-26] MEDS: Montelukast 10mg tablet ORAL SCH (17:07)
--- NOTE | 2019-03-26 19:39 | NUR ---
HAND-OFF: Report given to Leela WESTBROOK. Patient is stable.
--- NOTE | 2019-03-26 19:40 | NUR ---
NURSE NOTES: Received report from PIETRO Regan. Patient alert, oriented. Bed in low position, locked, side rails up x2, call light and cane within reach. No complaints at this time, requests not to be awakened for 4 AM vitals. Will continue to monitor.
[2019-03-26 20:00] VITALS: BP 123/91
--- NOTE | 2019-03-26 20:19 | General Progress Note ---
Assessment/Plan Assessment/Plan: asthma exacerbation bronchitis chronic back pain htn pulmonary hygiene abx steroids taper bp controlled dvt and ulcer prohylaxis oob PT dc plans for tomorrow if ok with pulmonary Subjective Allergies: Coded Allergies: ACETAMINOPHEN (Verified Allergy, Severe, 02/17/13) HYDROCODONE (Verified Allergy, Severe, 02/17/13) IBUPROFEN (Verified Allergy, Severe, 02/17/13) Subjective overall feel better decreaed wheezing cough improved Objective Last 24 Hour Vital Signs Date Time Temp Pulse Resp B/P (MAP) Pulse Ox O2 Delivery O2 Flow Rate FiO2 03/26/19 20:04 65 16 95 Nasal Cannula 2.0 28 63 18 95 03/26/19 16:00 98.9 81 18 157/68 (97) 98 03/26/19 12:59 59 161/74 03/26/19 12:00 98.6 59 18 161/74 (103) 95 03/26/19 10:55 74 16 98 Nasal Cannula 2.0 28 70 16 97 03/26/19 09:00 Nasal Cannula 2.0 03/26/19 08:00 98.2 66 16 154/68 (96) 94 03/26/19 07:19 Nasal Cannula 2.0 28 03/26/19 01:17 Nasal Cannula 2.0 28 03/25/19 23:57 98.4 58 18 128/87 (101) 94 03/25/19 22:43 71 18 100 Nasal Cannula 2.0 28 73 18 96 03/25/19 21:00 Nasal Cannula 2.0 Intake and Output 03/25/19 03/26/19 19:00 07:00 Intake Total 800 ml 375 ml Balance 800 ml 375 ml Intake Oral 800 ml 375 ml # Voids 3 Height (Feet): 5 Height (Inches): 4.00 Weight (Pounds): 160 General Appearance: WD/WN, no apparent distress Neck: supple Cardiovascular: normal rate Respiratory/Chest: other Abdomen: soft Federico Em MD Mar 26, 2019 20:19
--- NOTE | 2019-03-26 22:16 | Pulmonology Progress Note ---
Assessment/Plan Assessment/Plan Pulmonary Progress Note Assessment/Plan Problems: (1) Acute bronchitis (2) COPD exacerbation (3) Upper respiratory infection (4) Sinusitis Assessment/Plan Remains SOB. Patient is an 83-year-old female, nonsmoker with history of chronic cough, asthma, upper airway cough syndrome, postnasal drip, GERD, chronic rhinosinusitis, prior endoscopic sinus surgery, bronchiectasis, CAD status post PCI, hypertension, hyperlipidemia, degenerative disk disease, chronic low back pain, and prior DVT, PE, presenting with an acute exacerbation of her asthma, likely precipitated by URI/bronchitis. PROBLEM LIST: 1. Asthma with acute exacerbation. 2. Likely antecedent URI/bronchitis. 3. Bronchiectasis. 4. Upper airway cough syndrome/postnasal drip. 5. GERD. 6. History of chronic rhinosinusitis and endoscopic sinus surgery x2. 7. CAD, status post PCI, hypertension, hyperlipidemia. 8. DJD/DDD with chronic low back pain. 9. Remote history of postop DVT/PE in 2000 after cervical spine surgery. 10. Leukocytosis, likely steroid effect TREATMENT PLAN: 1. Optimize pulmonary hygiene/mobilize as tolerated. 2. Levaquin and Rocephin (D6/7). 3. Titrate FiO2 to keep saturations greater than 90%. 4. [id number]-[id number] and p.r.n. DuoNebs. 5. Dec Solu-Medrol to 30 IV BID and taper as tolerated 6. Budesonide HHN's BID 7. Monitor peak expiratory flow rates. 8. Monitor blood sugars and WCt on steroids. 9. Mucinex and p.r.n. Robitussin with codeine. 10. Continue Flonase 11. Continue PPI 12. Monitor volumes and renal function. 13. Aspiration precautions. 14. DVT prophylaxis, heparin subcutaneous. 15. The patient is a Full Code. Subjective Allergies: Coded Allergies: ACETAMINOPHEN (Verified Allergy, Severe, 02/17/13) HYDROCODONE (Verified Allergy, Severe, 02/17/13) IBUPROFEN (Verified Allergy, Severe, 02/17/13) Subjective AFVSS O2 needs stable less wheezing less cough no FC no CP + SOB Objective Vital Signs Noted General Appearance: WD/WN, no acute distress HEENT: normocephalic, atraumatic, anicteric, mucous membranes moist Respiratory/Chest: chest wall non-tender, no accessory muscle use, mild wheezing Cardiovascular: normal peripheral pulses, normal rate, regular rhythm Abdomen: normal bowel sounds, soft, non tender, no organomegaly, non distended , no mass Extremities: no cyanosis, no clubbing, no edema Laboratory Tests 03/24/19 18:40: White Blood Count 9.4, Red Blood Count 4.76, Hemoglobin 12.5, Hematocrit 39.0, Mean Corpuscular Volume 82, Mean Corpuscular Hemoglobin 26.3L, Mean Corpuscular Hemoglobin Concent 32.1, Red Cell Distribution Width 12.0, Platelet Count 181, Mean Platelet Volume 6.4L, Neutrophils (%) (Auto) 86.3H, Lymphocytes (%) (Auto) 8.5L, Monocytes (%) (Auto) 4.8, Eosinophils (%) (Auto) 0.0, Basophils (%) (Auto ) 0.3 Current Medications Medications (Trade) Dose Ordered Sig/Alfonso Route PRN Reason Start Time Stop Time Status Last Admin Dose Admin Al Hydroxide/Mg Hydroxide (Mylanta) 30 ml BIDPRN PRN ORAL Constipation 03/23/19 01:15 04/19/19 01:14 03/25/19 12:10 Albuterol/ Ipratropium (Albuterol/ Ipratropium) 3 ml Q6HRT N 03/23/19 07:00 03/26/19 06:59 03/25/19 12:22 Aspirin (ASA) 81 mg DAILY ORAL 03/23/19 09:00 04/21/19 08:59 03/25/19 08:25 Benzonatate (Tessalon Perles) 100 mg THREE TIMES A DAY ORAL 03/23/19 13:00 04/22/19 12:59 03/25/19 12:10 Budesonide (Pulmicort) 0.25 mg Q12HRT N 03/23/19 10:00 04/22/19 09:59 03/25/19 09:20 Doxycycline Monohydrate (Doxycycline Monohydrate) 100 mg Q12HR ORAL 03/23/19 09:00 03/27/19 20:59 03/25/19 08:25 Fluticasone Propionate (Flonase) 1 spray TWICE A DAY NASAL 03/23/19 09:00 04/20/19 17:59 03/25/19 08:24 Guaifenesin (Mucinex ER) 600 mg TWICE A DAY ORAL 03/23/19 09:00 04/20/19 17:59 03/25/19 08:25 Heparin Sodium (Porcine) (Heparin 5000 units/ml) 5,000 units EVERY 12 HOURS SUBQ 03/23/19 09:00 04/20/19 20:59 03/25/19 08:24 Levofloxacin 150 ml @ 150 mls/hr Q48H IVPB 03/24/19 15:00 03/31/19 14:59 03/24/19 15:16 Magnesium Hydroxide (Mom) 30 ml BIDPRN PRN ORAL Constipation 03/23/19 01:15 04/19/19 01:14 03/24/19 08:19 Methylprednisolone Sodium Succinate (Solu-MEDROL) 40 mg BID IVP 03/24/19 18:00 04/19/19 20:59 03/25/19 08:25 Montelukast Sodium (Singulair) 10 mg QPM ORAL 03/23/19 16:30 04/20/19 16:29 03/24/19 16:47 Pantoprazole (Protonix) 40 mg DAILY ORAL 03/23/19 09:00 04/21/19 08:59 03/25/19 08:25 Promethazine HCl/ Codeine (Phenergan with Codeine) 5 ml Q6H PRN ORAL For Cough 03/23/19 06:30 04/20/19 12:29 03/25/19 12:10 Timolol Maleate (Timoptic 0.25% Op Soln) 1 drop TWICE A DAY BOTH EYES 03/24/19 22:00 04/23/19 21:59 03/25/19 08:25 Zolpidem Tartrate (Ambien) 5 mg HSPRN PRN ORAL Insomnia 03/23/19 01:17 03/27/19 01:16 Subjective ROS Limited/Unobtainable: No Allergies: Coded Allergies: ACETAMINOPHEN (Verified Allergy, Severe, 02/17/13) HYDROCODONE (Verified Allergy, Severe, 02/17/13) IBUPROFEN (Verified Allergy, Severe, 02/17/13) Objective Last 24 Hour Vital Signs Date Time Temp Pulse Resp B/P (MAP) Pulse Ox O2 Delivery O2 Flow Rate FiO2 03/26/19 20:04 Nasal Cannula 2.0 28 03/26/19 20:04 65 16 95 Nasal Cannula 2.0 28 63 18 95 03/26/19 20:00 98.4 64 18 123/91 (102) 100 03/26/19 16:00 98.9 81 18 157/68 (97) 98 03/26/19 12:59 59 161/74 03/26/19 12:00 98.6 59 18 161/74 (103) 95 03/26/19 10:55 74 16 98 Nasal Cannula 2.0 28 70 16 97 03/26/19 09:00 Nasal Cannula 2.0 03/26/19 08:00 98.2 66 16 154/68 (96) 94 03/26/19 07:19 Nasal Cannula 2.0 28 03/26/19 01:17 Nasal Cannula 2.0 28 03/25/19 23:57 98.4 58 18 128/87 (101) 94 03/25/19 22:43 71 18 100 Nasal Cannula 2.0 28 73 18 96 Intake and Output 03/25/19 03/26/19 18:59 06:59 Intake Total 800 ml 375 ml Balance 800 ml 375 ml Intake Oral 800 ml 375 ml # Voids 3 Current Medications Medications (Trade) Dose Ordered Sig/Alfonso Route PRN Reason Start Time Stop Time Status Last Admin Dose Admin Al Hydroxide/Mg Hydroxide (Mylanta) 30 ml BIDPRN PRN ORAL Constipation 03/23/19 01:15 04/19/19 01:14 03/25/19 12:10 Albuterol/ Ipratropium (Albuterol/ Ipratropium) 3 ml Q4HRT [facility] 03/26/19 15:00 03/31/19 14:59 03/26/19 20:04 Aspirin (ASA) 81 mg DAILY ORAL 03/23/19 09:00 04/21/19 08:59 03/26/19 08:57 Benzonatate (Tessalon Perles) 100 mg THREE TIMES A DAY ORAL 03/23/19 13:00 04/22/19 12:59 03/26/19 17:18 Budesonide (Pulmicort) 0.25 mg Q12HRT [facility] 03/23/19 10:00 04/22/19 09:59 03/26/19 10:55 Diltiazem HCl (Cardizem CD) 180 mg DAILY ORAL 03/26/19 13:00 04/25/19 12:59 03/26/19 12:59 Doxycycline Monohydrate (Doxycycline Monohydrate) 100 mg Q12HR ORAL 03/23/19 09:00 03/27/19 20:59 03/26/19 20:36 Fluticasone Propionate (Flonase) 1 spray TWICE A DAY NASAL 03/23/19 09:00 04/20/19 17:59 03/26/19 17:17 Guaifenesin (Mucinex ER) 600 mg TWICE A DAY ORAL 03/23/19 09:00 04/20/19 17:59 03/26/19 17:18 Heparin Sodium (Porcine) (Heparin 5000 units/ml) 5,000 units EVERY 12 HOURS SUBQ 03/23/19 09:00 04/20/19 20:59 03/26/19 20:39 Levofloxacin (Levaquin) 750 mg Q48H ORAL 03/28/19 09:00 03/31/19 08:59 Lidocaine (Lidoderm 5% PATCH) 1 patch QHS TDERMAL 03/26/19 21:00 04/25/19 20:59 03/26/19 20:37 Magnesium Hydroxide (Mom) 30 ml BIDPRN PRN ORAL Constipation 03/23/19 01:15 04/19/19 01:14 03/24/19 08:19 Methylprednisolone Sodium Succinate (Solu-MEDROL) 30 mg BID IVP 03/25/19 18:00 04/19/19 20:59 03/26/19 17:17 Montelukast Sodium (Singulair) 10 mg QPM ORAL 03/23/19 16:30 04/20/19 16:29 03/26/19 17:07 Pantoprazole (Protonix) 40 mg DAILY ORAL 03/23/19 09:00 04/21/19 08:59 03/26/19 08:58 Promethazine HCl/ Codeine (Phenergan with Codeine) 5 ml Q6H PRN ORAL For Cough 03/23/19 06:30 04/20/19 12:29 03/26/19 13:00 Timolol Maleate (Timoptic 0.25% Op Soln) 1 drop TWICE A DAY BOTH EYES 03/24/19 22:00 04/23/19 21:59 03/26/19 17:17 Zolpidem Tartrate (Ambien) 5 mg HSPRN PRN ORAL Insomnia 03/23/19 01:17 03/27/19 01:16 Phillip Osman MD Mar 26, 2019 22:16
[2019-03-27] VITALS: BP 137/72
[2019-03-27] MEDS: Albuterol/Ipratropium 3ml neb HHN SCH ×4 (00:38→12:19)
[2019-03-27] MEDS: Budesonide HHN 0.25mg/2ml ud HHN SCH ×2 (00:38→09:59)
--- NOTE | 2019-03-27 00:48 | NUR ---
NURSE NOTES: RT here, brought humidifier for patient, as O2 is drying up her nares.
[2019-03-27] MEDS: Milk of Magnesia 30ml Ud ORAL PRN (00:57)
--- NOTE | 2019-03-27 03:16 | NUR ---
NURSE NOTES: Patient asleep. She spoke with RT last night and requested not to be awaken for 0300 meds.
--- NOTE | 2019-03-27 03:45 | Progress Note ---
DATE: 03/26/2019 CARDIOLOGY PROGRESS NOTE SUBJECTIVE: The patient's blood pressure trend is increasing. Congestion and shortness of breath with cough are decreasing. OBJECTIVE: VITAL SIGNS: Blood pressure 157/68, pulse 81, respirations 18, and afebrile. HEENT: Still with sinus tenderness. LUNGS: Coarse rhonchi. HEART: Regular rhythm and rate. Normal S1 and S2. ABDOMEN: Soft. EXTREMITIES: No edema. IMPRESSION: 1. Hypertensive heart disease. 2. Stable angina. 3. Paroxysmal bronchospasm. 4. Pansinusitis. 5. Bronchitis. 6. Asthma exacerbation. PLAN: 1. Steroid taper. 2. Inhaled and oral bronchodilators. 3. Decongestants. 4. Advance antihypertensive regimen. 5. No role for diuresis at this time. 6. Continue anti-platelet and anti-lipid drugs. Phillip Martinez M.D. DR: FARHAD JOB#: [id number] CC:
--- NOTE | 2019-03-27 06:30 | NUR ---
NURSE NOTES: Resent specimen (nares) for Viral cult, rapid respiratory.
--- NOTE | 2019-03-27 07:15 | NUR ---
HAND-OFF: Report given to PIETRO Aleman and GunnerRN.
--- NOTE | 2019-03-27 07:20 | NUR ---
NURSE NOTES: Received pt in bed, AAO x 4. On NC 2L/min with humidifier. No c/of pain/distress. IV on R FA 20g intact and patent, with saline lock. Cane on the bedside, within reach. Side rails x 2. Bed in the lowest and locked. Call light within reach. Will continue to monitor
[2019-03-27 08:00] VITALS: BP 107/66
[2019-03-27] MEDS: dilTIAZem HCl CD 180mg cap ORAL SCH (08:16)
[2019-03-27] MEDS: Solu-MEDROL 40mg Inj IVP SCH (08:16)
[2019-03-27] MEDS: Benzonatate 100mg Perles ORAL SCH ×2 (08:16→12:15)
[2019-03-27] MEDS: Aspirin Baby 81mg ORAL SCH (08:16)
[2019-03-27] MEDS: Doxycycline Monohydrate 100mg ORAL SCH (08:16)
[2019-03-27] MEDS: guaiFENesin ER 600mg tab ORAL SCH (08:17)
[2019-03-27] MEDS: Heparin 5000 units/ml inj SUBQ SCH (08:20)
[2019-03-27] MEDS: Flonase Nasal Inhaler 16gm NASAL SCH (08:43)
[2019-03-27] MEDS: Timoptic 0.25% Op Soln 2.5ml BOTH EYES SCH (08:43)
--- NOTE | 2019-03-27 09:27 | NUR ---
NURSE NOTES: Received call from [facility] and asked to have the paper work sent to them [facility] phone #[phone] Fax #: [phone]
[2019-03-27 11:37] VITALS: BP 144/58
--- NOTE | 2019-03-27 13:30 | NUR ---
*-* DISCHARGE PLANNING *-* PATIENT HAS BEEN REFERRED TO: [facility] P: [phone] F: [phone]
[2019-03-27] MEDS ORDERED: CARDIZEM CD180 MG ORAL (13:33)
[2019-03-27] MEDS ORDERED: MUCINEX600 MG PO (13:36)
[2019-03-27] MEDS ORDERED: LEVOFLOXACIN750 MG ORAL (13:38)
[2019-03-27] MEDS ORDERED: LEVOFLOXACIN250 MG ORAL (13:38)
[2019-03-27] MEDS ORDERED: PANTOPRAZOLE SO40 MG ORAL (13:40)
[2019-03-27] MEDS ORDERED: BETIMOL5 M2 OP (13:42)
--- NOTE | 2019-03-27 14:43 | NUR ---
RD ASSESSMENT & RECOMMENDATIONS SEE CARE ACTIVITY FOR COMPLETE ASSESSMENT DAILY ESTIMATED NEEDS: Needs based on Pulmonary;59kg, abw 25-30 kcals/kg 4253-2466 total kcals 1-1.5 g protein/kg 59-89 g total protein 25-30ml/kcal mL/kg 3057-6847 total fluid mLs NUTRITION DIAGNOSIS: Altered nutrition related lab values r/t clinical status AEB A1C 5.8, elevated BG (122-185), pt on solumedrol. PO DIET RECOMMENDATIONS: Maintain 2gm Low Sodium Diet ADDITIONAL RECOMMENDATIONS: 1) Maintain calibrated bed scale wt. 2) Monitor BG values, a1c elevated 3) Monitor for continued good po intake
--- NOTE | 2019-03-27 14:45 | NUR ---
NURSE NOTES: Patient was discharged to home with daughter via private vehicle in stable condition. Patient was escorted to the first floor. ID and IV was removed. No s/s of infection on the removal site. Skin intact. Discharge instructions were given. Prescriptions will be sent to pharmacy by Dr. Sam. All belongings were accounted for and given to patient.
--- NOTE | 2019-03-27 20:57 | Pulmonology Progress Note ---
Assessment/Plan Assessment/Plan Pulmonary Progress Note Assessment/Plan Problems: (1) Acute bronchitis (2) COPD exacerbation (3) Upper respiratory infection (4) Sinusitis Assessment/Plan Remains SOB. Patient is an 83-year-old female, nonsmoker with history of chronic cough, asthma, upper airway cough syndrome, postnasal drip, GERD, chronic rhinosinusitis, prior endoscopic sinus surgery, bronchiectasis, CAD status post PCI, hypertension, hyperlipidemia, degenerative disk disease, chronic low back pain, and prior DVT, PE, presenting with an acute exacerbation of her asthma, likely precipitated by URI/bronchitis. PROBLEM LIST: 1. Asthma with acute exacerbation. 2. Likely antecedent URI/bronchitis. 3. Bronchiectasis. 4. Upper airway cough syndrome/postnasal drip. 5. GERD. 6. History of chronic rhinosinusitis and endoscopic sinus surgery x2. 7. CAD, status post PCI, hypertension, hyperlipidemia. 8. DJD/DDD with chronic low back pain. 9. Remote history of postop DVT/PE in 2000 after cervical spine surgery. 10. Leukocytosis, likely steroid effect TREATMENT PLAN: 1. Optimize pulmonary hygiene/mobilize as tolerated. 2. Levaquin and Rocephin (D6/7). 3. Titrate FiO2 to keep saturations greater than 90%. 4. Uczqu-kfv-ihdin and p.r.n. DuoNebs. 5. Dec Solu-Medrol to 30 IV BID and taper as tolerated to Prednisone 6. Budesonide HHN's BID 7. Monitor peak expiratory flow rates. 8. Monitor blood sugars and WCt on steroids. 9. Mucinex and p.r.n. Robitussin with codeine. 10. Continue Flonase 11. Continue PPI 12. Monitor volumes and renal function. 13. Aspiration precautions. 14. DVT prophylaxis, heparin subcutaneous. 15. The patient is a Full Code. Subjective Allergies: Coded Allergies: ACETAMINOPHEN (Verified Allergy, Severe, 02/17/13) HYDROCODONE (Verified Allergy, Severe, 02/17/13) IBUPROFEN (Verified Allergy, Severe, 02/17/13) Subjective AFVSS O2 needs stable less wheezing less cough no FC no CP + SOB Objective Vital Signs Noted General Appearance: WD/WN, no acute distress HEENT: normocephalic, atraumatic, anicteric, mucous membranes moist Respiratory/Chest: chest wall non-tender, no accessory muscle use, mild wheezing Cardiovascular: normal peripheral pulses, normal rate, regular rhythm Abdomen: normal bowel sounds, soft, non tender, no organomegaly, non distended , no mass Extremities: no cyanosis, no clubbing, no edema Laboratory Tests 03/24/19 18:40: White Blood Count 9.4, Red Blood Count 4.76, Hemoglobin 12.5, Hematocrit 39.0, Mean Corpuscular Volume 82, Mean Corpuscular Hemoglobin 26.3L, Mean Corpuscular Hemoglobin Concent 32.1, Red Cell Distribution Width 12.0, Platelet Count 181, Mean Platelet Volume 6.4L, Neutrophils (%) (Auto) 86.3H, Lymphocytes (%) (Auto) 8.5L, Monocytes (%) (Auto) 4.8, Eosinophils (%) (Auto) 0.0, Basophils (%) (Auto ) 0.3 Current Medications Medications (Trade) Dose Ordered Sig/Alfonso Route PRN Reason Start Time Stop Time Status Last Admin Dose Admin Al Hydroxide/Mg Hydroxide (Mylanta) 30 ml BIDPRN PRN ORAL Constipation 03/23/19 01:15 04/19/19 01:14 03/25/19 12:10 Albuterol/ Ipratropium (Albuterol/ Ipratropium) 3 ml Q6HRT N 03/23/19 07:00 03/26/19 06:59 03/25/19 12:22 Aspirin (ASA) 81 mg DAILY ORAL 03/23/19 09:00 04/21/19 08:59 03/25/19 08:25 Benzonatate (Tessalon Perles) 100 mg THREE TIMES A DAY ORAL 03/23/19 13:00 04/22/19 12:59 03/25/19 12:10 Budesonide (Pulmicort) 0.25 mg Q12HRT N 03/23/19 10:00 04/22/19 09:59 03/25/19 09:20 Doxycycline Monohydrate (Doxycycline Monohydrate) 100 mg Q12HR ORAL 03/23/19 09:00 03/27/19 20:59 03/25/19 08:25 Fluticasone Propionate (Flonase) 1 spray TWICE A DAY NASAL 03/23/19 09:00 04/20/19 17:59 03/25/19 08:24 Guaifenesin (Mucinex ER) 600 mg TWICE A DAY ORAL 03/23/19 09:00 04/20/19 17:59 03/25/19 08:25 Heparin Sodium (Porcine) (Heparin 5000 units/ml) 5,000 units EVERY 12 HOURS SUBQ 03/23/19 09:00 04/20/19 20:59 03/25/19 08:24 Levofloxacin 150 ml @ 150 mls/hr Q48H IVPB 03/24/19 15:00 03/31/19 14:59 03/24/19 15:16 Magnesium Hydroxide (Mom) 30 ml BIDPRN PRN ORAL Constipation 03/23/19 01:15 04/19/19 01:14 03/24/19 08:19 Methylprednisolone Sodium Succinate (Solu-MEDROL) 40 mg BID IVP 03/24/19 18:00 04/19/19 20:59 03/25/19 08:25 Montelukast Sodium (Singulair) 10 mg QPM ORAL 03/23/19 16:30 04/20/19 16:29 03/24/19 16:47 Pantoprazole (Protonix) 40 mg DAILY ORAL 03/23/19 09:00 04/21/19 08:59 03/25/19 08:25 Promethazine HCl/ Codeine (Phenergan with Codeine) 5 ml Q6H PRN ORAL For Cough 03/23/19 06:30 04/20/19 12:29 03/25/19 12:10 Timolol Maleate (Timoptic 0.25% Op Soln) 1 drop TWICE A DAY BOTH EYES 03/24/19 22:00 04/23/19 21:59 03/25/19 08:25 Zolpidem Tartrate (Ambien) 5 mg HSPRN PRN ORAL Insomnia 03/23/19 01:17 03/27/19 01:16 Seen earlier Subjective ROS Limited/Unobtainable: No Allergies: Coded Allergies: ACETAMINOPHEN (Verified Allergy, Severe, 02/17/13) HYDROCODONE (Verified Allergy, Severe, 02/17/13) IBUPROFEN (Verified Allergy, Severe, 02/17/13) Objective Last 24 Hour Vital Signs Date Time Temp Pulse Resp B/P (MAP) Pulse Ox O2 Delivery O2 Flow Rate FiO2 03/27/19 12:19 69 16 98 Nasal Cannula 2.0 28 70 18 96 03/27/19 11:37 98.7 69 20 144/58 (86) 95 03/27/19 09:59 66 18 99 Nasal Cannula 2.0 28 63 18 94 03/27/19 09:00 Nasal Cannula 2.0 03/27/19 08:19 64 18 99 Nasal Cannula 2.0 28 66 18 96 03/27/19 08:19 Nasal Cannula 2.0 28 03/27/19 08:16 62 107/66 03/27/19 08:00 98.0 62 18 107/66 (80) 97 03/27/19 04:01 Nasal Cannula 2.0 28 03/27/19 00:38 58 16 95 Nasal Cannula 2.0 28 59 16 93 03/27/19 00:00 97.8 76 18 137/72 (93) 96 03/26/19 21:00 Nasal Cannula 2.0 Intake and Output 03/26/19 03/27/19 19:00 07:00 Intake Total 360 ml Balance 360 ml Intake Oral 360 ml # Voids 5 2 # Bowel Movements 1 Microbiology Date/Time Source Procedure Growth Status 03/26/19 14:00 Sputum Expectorated Gram Stain Pending Resulted 03/26/19 14:00 Sputum Expectorated Sputum Culture - Preliminary NORMAL UPPER RESPIRATORY WILFRID AT 24 ... Resulted Phillip Osman MD Mar 27, 2019 20:57
--- NOTE | 2019-03-28 03:30 | Progress Note ---
DATE: 03/27/2019 CARDIOLOGY PROGRESS NOTE SUBJECTIVE: The patient has less congestion, less cough. No shortness of breath. OBJECTIVE: VITAL SIGNS: Blood pressure 144/58, pulse 69, respirations 20. Earlier 107/66. LUNGS: Coarse breath sounds. No wheezing. CARDIAC: Regular rhythm and rate. Normal S1, S2. ABDOMEN: Soft. EXTREMITIES: No edema. IMPRESSION: Improved. PLAN: 1. Stable for outpatient followup. 2. Cardiovascular regimen discussed and outpatient cardiovascular followup arranged as well. Phillip Martinez M.D. DR: GAYATRI JOB#: [id number] CC:
[2019-03-28] MEDS ORDERED: Levofloxacin 750mg tab ORAL SCH (09:00)
--- NOTE | 2019-03-28 09:36 | Discharge Summary ---
Discharge Summary Discharge Summary _ DATE OF ADMISSION: 03/20/2019 DATE OF DISCHARGE: 03/27/2019 DISCHARGED BY: Dr. Em REASON FOR ADMISSION: 83 years old female with past medical history of hypertension, coronary artery disease , status post stent placement, cataract surgery left eye, asthma , GERD, presented with wheezing, cough and increased dyspnea on exertion over the last few days. Patient had nebulizer at home, but it did not help with symptoms. In the past patient had been on prednisone. Patient denied fever and chills. She denied chest pain. Patient stated that it was not her worst attack. Patient reported upper back discomfort from the cough. Pain was mainly positional, 8 out of 10 on a scale 1-10 and . Patient felt that pain was possibly more related to osteoarthritis. Patient also reported pain in the right knee. No calf pain. No edema. No hemoptysis . Phlegm was mainly clear and somewhat thick. Patient reported history of arthritis. She was scheduled to see a extrusion former tomorrow. The joints that were sore , mainly in her fingers, hands and knees. Upon evaluation blood pressure was 159/85 , patient was tachypneic with respiratory rate at 47 . Pulse oximetry was stable on room air , no fevers. Laboratory work-up revealed stable electrolytes. Glucose 88. Stable LFT. pro BNP 104. EKG revealed sinus rhythm , no acute ischemic changes. No leukocytosis. Stable hemoglobin and hematocrit. Elevated eosinophils count noted. Lactic acid 1.2. Urinalysis revealed no evidence of urinary tract infection. X-ray of the right knee revealed no suprapatellar effusion. No acute fracture. Mild degenerative changes. Influenza screen test was negative. Patient started on the IV steroids and bronchodilator treatment and admitted for further management. CONSULTANTS: file clerk data entry pulmonary [facility] COURSE: Patient admitted. Pulmonology and cardiology closely followed. Patient started on empiric antibiotics. Bronchodilator treatment provided [id number] and as needed. Patient started on IV Solu-Medrol and slowly tapered down as she clinically improved. Supplemental oxygen provided and titrated to keep pulse oximetry above 90%. Antitussive provided with Mucinex [id number] and Robitussin with codeine as needed. Patient started on budesonide nebulizing treatment twice a day. Flonase was resumed. Blood sugar was closely monitored while patient was on the steroids. GI prophylaxis provided. Venous duplex bilateral lower extremity revealed no evidence of acute DVT. Volumes and renal parameters were closely monitored. DVT prophylaxis provided. Strict aspiration precautions were maintained. Blood culture were negative. Sputum culture revealed Stenotrophomonas. Repeated sputum culture was negative. Patient had one day of leukocytosis , which was probably due to steroids, which resolved. No fevers. Maxillofacial CT scan revealed extensive pansinusitis. Antiplatelet therapy with aspirin and statin continued. Blood pressure was managed with Cardizem and remained stable. Patient with known history of diastolic dysfunction. No evidence of acute congestive heart failure exacerbation, as per file clerk data entry. Pain management was addressed, and pain was controlled. Eye drops continued. Supportive care can provided. Patient clinically stabilized and was ready for discharge home with home health services. 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 DISCHARGE INSTRUCTIONS: Patient was discharged home with home health services. Follow up with primary care provider in one week. I have been assigned to dictate discharge summary for this account. I was not involved in the patient's management. Gaby Méndez NP Mar 28, 2019 09:36
--- NOTE | 2019-03-28 15:40 | Cardiology Report ---
APPROVED REPORT EKG Measurement Heart [id number] Sinus rhythm with 1st degree AV block with premature atrial complexes Otherwise normal ECG
== END 2019-03-27 14:45 | disposition home health service (06) | DRG 192 ==
LOC: EMR 15:05 → 2E 15:16 → EDBEDREQ 18:00 → 3E 03-23 00:39
DX: J44.1 Chronic obstructive pulmonary disease with (acute) exacerbation (principal); J44.0 Chronic obstructive pulmonary disease with (acute) lower respiratory infection; J20.9 Acute bronchitis, unspecified; Z88.6 Allergy status to analgesic agent; I11.9 Hypertensive heart disease without heart failure; K21.9 Gastro-esophageal reflux disease without esophagitis; Z95.5 Presence of coronary angioplasty implant and graft; E78.5 Hyperlipidemia, unspecified; M51.36 Other intervertebral disc degeneration, lumbar region; Z86.718 Personal history of other venous thrombosis and embolism; Z86.711 Personal history of pulmonary embolism; I25.118 Atherosclerotic heart disease of native coronary artery with other forms of angina pectoris; D72.829 Elevated white blood cell count, unspecified; T38.0X5A Adverse effect of glucocorticoids and synthetic analogues, initial encounter; J32.4 Chronic pansinusitis
CPT/HCPCS: 36415; 70486; 71045; 80048; 80053; 80061; 81003; 82550; 83036; 83605; 83735; 83880; 84443; 84484; 85025; 85610; 85730; 86710; 87040; 87070; 87181; 87205; 93005; 93970; 94640; 94664; 96374; 99285; J7620